=== PATIENT | female | born 1965 | race Caucasian/White ===

== ENCOUNTER 2017-08-14 09:48 | Inpatient (IN) | payer OTHER, MEDICARE ==
[~2017-08-14] VITALS: Ht 157.5 cm; Wt 38.6 kg
--- NOTE | 2017-08-14 10:41 | RADIOLOGY REPORT ---
EXAMINATION: XR CHEST CLINICAL INFORMATION: Rule out pneumonia. COMPARISON: Chest radiograph 02/16/2011 TECHNIQUE: 2 views of the chest were obtained. FINDINGS: Mild right convex thoracic curvature. The lungs are hyperinflated and underlying emphysema suspected. No focal consolidation or pleural effusion. The heart and mediastinum are normal in appearance. IMPRESSION: Hyperinflation. Suspect underlying emphysema. High-resolution CT of the thorax could be obtained as warranted clinically. No evidence of pneumonia.
--- NOTE | 2017-08-14 11:37 | ED DYSPNEA/ASTHMA COMPLAINT ---
History of Present Illness General Chief Complaint: General Adult Stated Complaint: ?PNA PER PT Source: patient Exam Limitations: no limitations Vital Signs & Intake/Output Vital Signs & Intake/Output Vital Signs Date Time Temp Pulse Resp B/P B/P Pulse O2 O2 Flow FiO2 Mean Ox Delivery Rate 08/14 1624 98.9 98 20 104/58 95 Nasal 4.0L Cannula 08/14 1315 98.8 98 24 118/69 89 Room Air 08/14 1208 92 18 99 Aerosol Mask 08/14 1201 94 Room Air 08/14 1130 93 Room Air 08/14 1130 136 30 92 Room Air 08/14 1004 97.0 124 18 96 Room Air Allergies Coded Allergies: morphine (RASH 08/14/17) Reconcile Medications Dicyclomine HCl 20 MG TABLET 1 TAB PO 4 TIMES/DAY ABD CRAMPS (Reported) Levofloxacin 750 MG TABLET 1 TAB PO DAILY ?PNA (Reported) Loperamide HCl (Imodium A-D) 2 MG CAPSULE 1 CAP PO PRN DIARRHEA (Reported) Melatonin 3 MG TABLET 1 TAB PO QPM SLEEP (Reported) Triage Note: PT STATES SHE WAS DX WITH PNA X4 DAYS AGO AT [facility]. WAS PUT ON LEVAQUIN BUT FEELS NO BETTER. REPORTS SHE DID NOT HAVE A CHEST XRAY. APPETITE AND FOOD HAS NO FLAVOR. HAS A HX OF CHRONS. Triage Nurses Notes Reviewed? yes Onset: Abrupt Duration: week(s):, constant Timing: recent history Severity: moderate, severe HPI: 52-year-old female comes into the emergency room feeling sick over the past week. She reports that she's had fever chills cough shortness of breath and some pleuritic chest pain. She was seen at urgent care center prescribed Levaquin. She smokes a half a pack a day for approximately 35-40 years. Denies any prior diagnosis of COPD. Denies any syncopal episodes. Nothing seems to make this better. She comes in for further evaluation. (Brendan NIETO,Tomi) Past History Travel History Traveled to [place] past 21 day No Medical History Any Pertinent Medical History? see below for history Gastrointestinal: Crohn's disease Surgical History Surgical History: non-contributory Psychosocial History Who do you live with Family Services at Home Nursing What is your primary language Nicaraguan Tobacco Use: Current Daily Use Daily Tobacco Use Amount/Type: => 5 Cigarettes daily Family History Hx Contributory? No (Tomi Pinedo) Review of Systems Review of Systems Constitutional: Reports: see HPI. EENTM: Reports: see HPI. Respiratory: Reports: see HPI. Cardiovascular: Reports: no symptoms. GI: Reports: no symptoms. Genitourinary: Reports: no symptoms. Musculoskeletal: Reports: no symptoms. Skin: Reports: no symptoms. Neurological/Psychological: Reports: no symptoms. Hematologic/Endocrine: Reports: no symptoms. Immunologic/Allergic: Reports: no symptoms. All Other Systems: Reviewed and Negative (Tomi Pinedo) Physical Exam Physical Exam General Appearance: alert, mild distress, thin Head: atraumatic Eyes: Bilateral: normal appearance. Ears, Nose, Throat: normal ENT inspection, hearing grossly normal Neck: normal inspection Respiratory: decreased breath sounds, rhonchi, wheezing Cardiovascular: regular rate/rhythm, tachycardia Extremities: normal inspection Neurologic/Psych: awake, alert, oriented x 3, normal gait, normal mood/affect Skin: intact, normal color Core Measures ACS in differential dx? No CVA/TIA Diagnosis No Sepsis Present: No Sepsis Focused Exam Completed? No (Tomi Pinedo) Progress Differential Diagnosis: asthma, AMI, bronchitis, costochondritis, CHF, COPD, musculoskeletal pain, pericarditis, pulmonary embolism, pneumonia, pneumothorax, rib fracture, unstable angina Plan of Care: Orders Procedure Date/time Status Regular Diet 08/14 D Active BLOOD CULTURE 08/14 1603 Active URINALYSIS 08/14 1401 Active Add-on Test (ER Only) 08/14 1306 Active D-DIMER 08/14 1200 Complete TROPONIN LEVEL 08/14 1137 Complete COMPREHENSIVE METABOLIC PANEL 08/14 1137 Complete CBC WITHOUT DIFFERENTIAL 08/14 1137 Complete EKG 08/14 1129 Active RAPID VIRAL INFLUENZA A 08/14 1006 Complete Current Medications Sig/Stefanie Start time Last Medication Dose Stop Time Status Admin Azithromycin 500 MG ONCE ONE 08/14 1630 AC (Zithromax) 08/14 1729 Dextrose/Water 250 ML (D5W) Laboratory Tests 08/14/17 1200: Anion Gap 19 H, Estimated GFR 34 L, BUN/Creatinine Ratio 31.3 H, Glucose 110 H, Calcium 10.5 H, Total Bilirubin 0.9, AST 38 H, ALT 40, Alkaline Phosphatase 127 H, Troponin I < 0.01, Total Protein 8.4 H, Albumin 4.9, Globulin 3.5, Albumin/Globulin Ratio 1.4, D-Dimer High Sensitivty 217, CBC w Diff NO MAN DIFF REQ, RBC 5.29, MCV 94.2, MCH 31.2 H, MCHC 33.1, RDW 12.7, MPV 8.2, Gran % 70.9, Lymphocytes % 17.2 L, Monocytes % 10.0 H, Eosinophils % 1.4, Basophils % 0.5, Absolute Granulocytes 8.8 H, Absolute Lymphocytes 2.1, Absolute Monocytes 1.3 H, Absolute Eosinophils 0.2, Absolute Basophils 0.1 Microbiology 08/14 1642 BLOOD: Blood Culture - RECD 08/14 1620 BLOOD: Blood Culture - RECD 08/14 1009 NASOPHARYN: Influenza Virus A & B Rapid Smear - COMP Diagnostic Imaging: Viewed by Me: Radiology Read, CT Scan. Discussed w/RAD: Radiology Read, CT Scan. Radiology Impression: PATIENT: JOSÉ MIGUEL BAUMAN PRESENT AGE: 52 PATIENT ACCOUNT NO: [id number] : 66 LOCATION: [facility] ORDERING PHYSICIAN: Anabell Goldman MD SERVICE DATE: 08/14/17-1006 EXAM TYPE: RAD - XRY -CHEST XRAY, TWO VIEWS EXAMINATION: XR CHEST CLINICAL INFORMATION: Rule out pneumonia. COMPARISON: Chest radiograph 02/16/2011 TECHNIQUE: 2 views of the chest were obtained. FINDINGS: Mild right convex thoracic curvature. The lungs are hyperinflated and underlying emphysema suspected. No focal consolidation or pleural effusion. The heart and mediastinum are normal in appearance. IMPRESSION : Hyperinflation. Suspect underlying emphysema. High-resolution CT of the thorax could be obtained as warranted clinically. No evidence of pneumonia. DICTATED BY : Kash Lutz MD DATE/TIME DICTATED:08/14/171031 PROVIDER NETWORK ANALYST:MISSY DATE/TIME TRANSCRIBED:08/14/171031 CONFIDENTIAL, DO NOT COPY WITHOUT APPROPRIATE AUTHORIZATION. <Electronically signed in Other Vendor System> SIGNED BY: Kash Lutz MD 08/14/17 1041 Initial ED EKG: normal sinus rhythm, rate (105), nonspecific ST T wave chg (Tomi Pinedo) Departure Departure Disposition: STILL A PATIENT Condition: Stable Clinical Impression Primary Impression: Pneumonia Secondary Impressions: Hypoxia Referrals: Yulisa Salmeron APRN (PCP/Family) Departure Forms: Customer Survey General Discharge Information Admission Note Spoke With: Alonso Orozco MD Documentation of Exam: Documentation of any treatments & extenuating circumstances including Concerns Regarding Discharge (functional status, medication knowledge or non-compliance, living conditions, etc.) that warrant an admission rather than observation: Patient will require IV antibiotics. Supplemental oxygen. Breathing treatments. Pulmonary consult. Patient's oxygen saturation dropped to 88% and she feels very short of breath and tachypnea on exam. (Tomi Pinedo) PA/RING MAKING MACHINE OPERATOR Co-Sign Statement Statement: ED Attending supervision documentation- [X] I saw and evaluated the patient. I have also reviewed all the pertinent lab results and diagnostic results. I agree with the findings and the plan of care as documented in the PA's/RING MAKING MACHINE OPERATOR's documentation. [X] I have reviewed the ED Record and agree with the PA's/RING MAKING MACHINE OPERATOR's documentation. [] Additions or exceptions (if any) to the PAs/RING MAKING MACHINE OPERATOR's note and plan are summarized below: [] (Jones NAQVI,Anabell) Critical Care Note Critical Care Note Critical Care Time: non-applicable (Tomi Pinedo)
[2017-08-14] MEDS ORDERED: LEVOFLOXACIN750 M1 PO (12:15)
[2017-08-14] MEDS ORDERED: DICYCLOMINE HCL20 M1 PO (12:17)
[2017-08-14] MEDS ORDERED: IMODIUM A-D2 M2 PO (12:17)
[2017-08-14] MEDS ORDERED: MELATONIN3 M4 PO (12:18)
[2017-08-14 12:20] LABS: ABSOLUTE BASOPHIL COUNT 0.1 /CUMM (0.0-0.2); ABSOLUTE EOSINOPHIL COUNT 0.2 /CUMM (0.0-0.7); ABSOLUTE GRANULOCYTE CT 8.8 /CUMM (1.4-6.5); ABSOLUTE LYMPH COUNT 2.1 /CUMM (1.2-3.4); ABSOLUTE MONOCYTE COUNT 1.3 /CUMM (0.10-0.60); BASOPHIL % 0.5 % (0.0-2.0); EOSINOPHIL % 1.4 % (0-5); GRANULOCYTE % 70.9 % (42.2-75.2); HEMATOCRIT 49.9 % (37-47); MEAN CORPUSCULAR HGB 31.2 PG (27.0-31.0); MEAN CORPUSCULAR HGB CONC 33.1 G/DL (33.0-37.0); MEAN CORPUSCULAR VOLUME 94.2 FL (81.0-99.0); MEAN PLATELET VOLUME 8.2 FL (7.4-10.4); PLATELET COUNT 328 /CUMM (130-400); RBC DISTRIBUTION WIDTH 12.7 % (11.5-14.5); RED BLOOD CELL CT 5.29 /CUMM (4.20-5.40); WHITE BLOOD CELL COUNT 12.4 /CUMM (4.8-10.8)
--- NOTE | 2017-08-14 15:40 | CT SCAN REPORT ---
EXAMINATION: CT CHEST WITHOUT CONTRAST CLINICAL INFORMATION: Shortness of breath and chest pain. COMPARISON: Chest radiograph 08/14/2017, selected images CT neck 02/25/2017. TECHNIQUE: Multidetector volumetric CT imaging of the chest was done. Axial MIP volume rendering provided. Sagittal and coronal reformatted images were obtained. DLP: 199.80 mGy-cm FINDINGS: VB DEVELOPER: Hyperinflation is noted. There is a right convex curvature of the thoracic spine. Airways: The trachea is normal in appearance. Moderate diffuse peribronchial thickening is seen. Endobronchial mucous/secretions is seen scattered in the airways in the right upper lobe and both lower lobes. LUNGS: No significant emphysema. Suspect very early centrilobular emphysema at the lung apices. There are multiple predominantly subsegmental areas of groundglass opacities scattered in the upper lobes and lower lobes and lingula with only minimal involvement of the right middle lobe. Some associated interstitial changes within the groundglass opacities ("crazy paving"). No large confluent areas of consolidation. No evidence of focal mass. MEDIASTINUM: No significant mediastinal adenopathy. PLEURA: There is no pleural effusion. No pleural mass or thickening. AXILLA: No lymphadenopathy. UPPER ABDOMEN: Unremarkable. OSSEOUS STRUCTURES: Right convex thoracic scoliosis. No lytic or sclerotic lesions are seen. IMPRESSION: 1. Multiple predominantly subsegmental areas of groundglass opacity throughout the bilateral lungs. This is associated with moderate peribronchial thickening and mucous/secretions within the peripheral airways as outlined above. 2. Combination of findings could relate to an infectious process and is nonspecific including flu, viral, atypical and bacterial infectious processes. There is a wide differential for these findings including noninfectious entities. Recommend follow-up CT chest posttreatment when the patient is clinically well to reevaluate for any chronic/residual changes. The findings were reviewed with Tomi Cardona.
--- NOTE | 2017-08-14 20:50 | History & Physical ---
Hernando NAQVI,[facility] 08/14/172048: General Information and HPI MD Statement: I have seen and personally examined JOSÉ MIGUEL BAUMAN and documented this H&P. The patient is a 52 year old F who presented with a patient stated chief complaint of [sob, fatigue,cough]. Source of Information: patient History of Present Illness: 52 yo F with pmhx of chrohns dz s/p multiple bowel resecutions, polysubstance abuse, presenting for worsening symptoms of sob, cough, fatigue. The patient states that her symptoms started last tuesday when she felt extremely weak. She also endorses dry cough, decrease appetite, [place], mild abd pain, sob, feelings of chest compression and increase in her stool. She states her symptoms have been progressively worst. She started having a fever on tuesday. She then decided to go to an urgent care clinic on where she was perscribed levoquin for suspected pna. She took it for 2 days and went to the ED today because of her husbands concerns of not improving. She also endorses episodes where she wakes up from dyspnic/sob episodes/ orthopnea at night. She states it happens intermittently. She usually sleeps with 1 pillow but during these episodes she will use 2-3 pillows. She denies any LE edema. She also endorses losing weight the for the past several months. She also endorses smoking .5 ppd x 26 years. She denies any purse breathing. She states did not get the flu and pna shot. Allergies/Medications Allergies: Coded Allergies: morphine (RASH 08/14/17) Home Med list Dicyclomine HCl 20 MG TABLET 1 TAB PO 4 TIMES/DAY ABD CRAMPS (Reported) Levofloxacin 750 MG TABLET 1 TAB PO DAILY ?PNA (Reported) Loperamide HCl (Imodium A-D) 2 MG CAPSULE 1 CAP PO PRN DIARRHEA (Reported) Melatonin 3 MG TABLET 1 TAB PO QPM SLEEP (Reported) Past History Travel History Traveled to [place] past 21 day No Medical History Gastrointestinal: Crohn's disease Isolation History: Standard Surgical History Surgical History: non-contributory Past Family/Social History Psychosocial History Services at Home: Nursing Review of Systems Review of Systems Constitutional: Reports: see HPI, chills, fever, malaise, weakness. Respiratory: Reports: cough, short of breath. GI: Reports: nausea, changes in stool. Genitourinary: Reports: no symptoms. Exam & Diagnostic Data Last 24 Hrs of Vital Signs/I&O Vital Signs Date Time Temp Pulse Resp B/P B/P Pulse O2 O2 Flow FiO2 Mean Ox Delivery Rate 08/14 2322 98.4 74 20 116/74 96 Nasal 4.0L Cannula 08/147 97 Nasal 4.0L Cannula 08/14 2008 98.2 83 18 106/58 97 Nasal 4.0L Cannula 08/14 1928 98.0 88 18 95/60 96 Nasal 4.0L Cannula 08/14 1624 98.9 98 20 104/58 95 Nasal 4.0L Cannula 08/14 1315 98.8 98 24 118/69 89 Room Air 08/14 1208 92 18 99 Aerosol Mask 08/14 1201 94 Room Air 08/14 1130 93 Room Air 08/14 1130 136 30 92 Room Air 08/14 1004 97.0 124 18 96 Room Air Intake & Output 08/15 0800 08/15 0000 08/14 1600 Intake Total 240 1000 Output Total Balance 240 1000 Intake, IV 1000 Intake, Oral 240 Patient 84 lb 15.99 oz Weight Weight Reported by Patient Measurement Method Physical Exam General Appearance Alert, Oriented X3, Cooperative, Mild Distress, very thin Skin herpetic lesions on L lip and nasal area HEENT no neck lymphadenopathy Cardiovascular Regular Rate, Normal S1, Normal S2 Lungs decrease lung sounds more on L, b/l inspiratory wheezes, bronchial breathing Abdomen Soft, No Tenderness, 2x colostomy bags Extremities no LE edema Last 24 Hrs of Labs/Zander: Laboratory Tests 08/14/17 2344: Lactic Acid Cancelled 08/14/17 2254: Troponin I 0.02 08/14/17 2204: Lactic Acid 2.4 H 08/14/17 1200: Lactic Acid 2.0 08/14/17 1200: Anion Gap 19 H, Estimated GFR 34 L, BUN/Creatinine Ratio 31.3 H, Glucose 110 H, Calcium 10.5 H, Total Bilirubin 0.9, AST 38 H, ALT 40, Alkaline Phosphatase 127 H, Troponin I < 0.01, Total Protein 8.4 H, Albumin 4.9, Globulin 3.5, Albumin/Globulin Ratio 1.4, D-Dimer High Sensitivty 217, CBC w Diff NO MAN DIFF REQ, RBC 5.29, MCV 94.2, MCH 31.2 H, MCHC 33.1, RDW 12.7, MPV 8.2, Gran % 70.9, Lymphocytes % 17.2 L, Monocytes % 10.0 H, Eosinophils % 1.4, Basophils % 0.5, Absolute Granulocytes 8.8 H, Absolute Lymphocytes 2.1, Absolute Monocytes 1.3 H, Absolute Eosinophils 0.2, Absolute Basophils 0.1 Microbiology 08/14 2205 URINE ROUT: Legionella Antigen - ORD 08/14 2205 URINE ROUT: Streptococcus pneumoniae Antigen (M - ORD 08/14 1642 BLOOD: Blood Culture - RECD 08/14 1620 BLOOD: Blood Culture - RECD 08/14 1009 NASOPHARYN: Influenza Virus A & B Rapid Smear - COMP Assessment/Plan Assessment: A: 52 yo F with [facility] s/p multiple bowel resecutions, polysubstance abuse, presenting for worsening symptoms of sob, cough, and fatigue without improvement on outpatient levoquin. #Pneumonia with imposed on COPD exascerbation/bronchitis Ct revealed multiple GGO in bilateral lungs. and is nonspecific including flu, viral, atypical and bacterial infectious processes and noninfectious entities. Pt afebrile Wbc 12.4 Anion gap 19 Flu negative LA 2.0 -> 2.4 -> 1.8 -Follow-up [facility] -Follow-up urinary strep pneumo and Legionella -Continue ceftriaxone and azithromycin -Pulmonary consult #hx of chrohns -Outpatient GI follow-up with her specialist Dr. Kimbrough #amado BUN 50, Creatinine 1.6 -Continue IV fluids, continue to monitor #increased rbc from chronic hypoxia vs hemoconcentration H/H 16.5, 49.9 Most likely this is due to hypoxia from COPD as other labs do not show evidence of hemoconcentration -Continue to monitor -Pulmonary consult #hyponatremia Sodium 133, 136 baseline Most likely due to poor appetite -Continue IV fluids #hypercalcemia -Continue IV fluids #transaminitis Ast 38, ALT 40, ALP 127 -Repeat labs in a.m. possibly due to error #hx of smoking -cont nicotine patch + smoking cessation #insomnia -Continue melatonin #dvt prophylaxis -heparin sub q #FULL CODE As Ranked By This Provider Problem List: 1. Pneumonia 2. Bronchitis 3. Crohn disease 4. Hyponatremia 5. Hypercalcemia 6. AMADO (acute kidney injury) Core Measures/Misc (03/20) Acute Coronary Syndrome ACS Diagnosis: No Congestive Heart Failure Congestive Heart Failure Diagnosis No Cerebrovascular Accident CVA/TIA Diagnosis: No VTE (View Protocol) VTE Risk Factors Acute Medical Illness No Mechanical VTE Prophylaxis d/t Other No VTE Pharm Prophylaxis d/t NA PharmProphylax ordered Sepsis (View protocol) Sepsis Present: No Alonso Orozco MD 08/15/17 0014: Attending MD Review Statement Attending Statement Attending MD Statement: examined this patient, discuss w/resident/PA/KICK PRESS OPERATOR, agreed w/resident/PA/KICK PRESS OPERATOR, reviewed EMR data (avail), reviewed images, amended to note Attending Assessment/Plan: The patient is a 52 yo female with h/o multiple bowel resections (Crohn's Disease), h/o polysubstance abuse (in past), and smoking h/o who presented in the ED with c/o progressive dyspnea, malaise, cough, and some pleuritic chest pain over the last week. She was seen at an urgent care center and started on Levaquin. She denied any fever or chills. She is a patient at [facility] and states she was to have more workup of her lungs, however had difficulty scheduling scans. She has also had slow weight loss in recent months. Physical Exam: VS: T 97.0, P 124-98, R 30-20, BP 118/69, PO 96% RA HEENT: eyes- PERRLA, EOMI annie- dry mucosa Neck: no adenopathy, JVD, bruits Chest: diminished BS, scattered rhonchi, + mild to mod expiratory wheeze Cor: RRR nl S1, S2 (at time of my exam) Abd: BS+, soft, NT Ext: non-tender, no edema, pulses 2+ Neuro: alert & oriented x 3, non-focal exam, gait not tested Labs/Tests- as above Impression/Plan: #COPD Exacerbation/Bronchitis- no focal infiltrate on CT- ? most likely infectious (viral vs bacterial). No prior admits for lung issues, however with smoking hx suspect COPD. Plan: Admit to medical floor. Agree with IV steroids, aerosol, Zithromax (she received Ceftriaxone x 1 in ED). Consider pulmonary consult in morning as will need OP follow-up. #H/O ?Crohn's Disease- weight loss. Was followed by GI. Plan: OP GI follow-up. #AMADO- Cre 1.6 with normal baseline. Most likely secondary to volume depletion. Plan: Check U/A, IV hydration and follow-up. If not improved may need renal US. #Hyponatremia- most likely due to poor po intake. Plan: Follow-up with NS hydration. #Lactic Acidosis- no clinical sepsis- may be related to volume depletion. Plan: Follow up lactate with hydration. Yesi NAQVI,[facility] 08/15/17 0905: Resident Review Statement Resident Statement: examined this patient, discussed with planning intern, agreed with planning intern Other Findings: Ms. Bauman is 52 year old female with past medical history significant for Crohn' s disease status post multiple bowel resection for Crohn's disease and bilateral colostomy, poly-substance abuse, who presented to ED with chief complaint of shortness of breath and cough. Problem list Acute hypoxic respiratory failure Community-acquired pneumonia COPD exacerbation Lactic acidosis Hyponatremia Dehydration AST and alkaline phosphatase elevation Acute kidney injury Plan Admit to general medical floor Vitals every shift Continue ceftriaxone and azithromycin TRC and nebs Oxygen supplementation Consider pulmonary consultation for pulmonary function test Repeat CBC, BMP and liver function test in a.m. Solu-Medrol 40 twice a day Nicotine patch, smoking cessation counseling Fluid resuscitation Trend lactic acid DVT prophylaxis heparin subcutaneous Patient is on dicyclomine and loperamide as a when necessary symptomatic treatment for Crohn's disease, continue as needed DVT prophylaxis heparin subcutaneous Code full
[2017-08-14 23:22] VITALS: BP 116/74
--- NOTE | 2017-08-15 00:30 | Admission Certification ---
Admission Certification Certification Statement - As attending physician, I certify that at the time of - admission, based on clinical presentation, severity of - symptoms, need for further diagnostic testing and - therapeutic interventions, and risk of adverse outcomes - without in-hospital treatment, in my clinical assessment, - this patient requires an acute hospital stay for a minimum - of two nights or longer. I have also considered psychsocial - factors such as support system, advanced age, financial - issues, cognitive issues, and failed out-patient treatments, - past re-admission history, safety of patient, and lack of - compliance as applicable. Specific rationale supporting this admission is: The patient presents with COPD exacerbation/bronchitis. Also with AMADO/volume depletion and lactic acidosis. Needs aggressive IV hydration, IV steoids, Abx, pulmonary consult, aerosol, close monitoring of pulse ox.
[2017-08-15 06:55] VITALS: BP 96/52
[2017-08-15 08:15] LABS: ABSOLUTE BASOPHIL COUNT 0.1 /CUMM (0.0-0.2); ABSOLUTE EOSINOPHIL COUNT 0.1 /CUMM (0.0-0.7); ABSOLUTE GRANULOCYTE CT 11.5 /CUMM (1.4-6.5); ABSOLUTE LYMPH COUNT 2.7 /CUMM (1.2-3.4); ABSOLUTE MONOCYTE COUNT 1.2 /CUMM (0.10-0.60); BASOPHIL % 0.5 % (0.0-2.0); EOSINOPHIL % 0.4 % (0-5); GRANULOCYTE % 73.9 % (42.2-75.2); MEAN CORPUSCULAR HGB 31.5 PG (27.0-31.0); MEAN CORPUSCULAR HGB CONC 33.3 G/DL (33.0-37.0); MEAN CORPUSCULAR VOLUME 94.4 FL (81.0-99.0); MEAN PLATELET VOLUME 8.5 FL (7.4-10.4); PLATELET COUNT 254 /CUMM (130-400); RBC DISTRIBUTION WIDTH 12.9 % (11.5-14.5); WHITE BLOOD CELL COUNT 15.6 /CUMM (4.8-10.8)
--- NOTE | 2017-08-15 08:16 | PN- Housestaff ---
Zhang NAQVI,Carroll 08/15/17 0816: Subjective Follow-up For: COPD EXACERBATION AMADO Subjective: Seen and examined at [facility]. She appears depressed and tearful during episodes of conversation. She appears in mil Review of Systems Constitutional: Reports: see HPI. Objective Last 24 Hrs of Vital Signs/I&O Vital Signs Date Time Temp Pulse Resp B/P B/P Pulse O2 O2 Flow FiO2 Mean Ox Delivery Rate 08/15 1010 Nasal 2.0L Cannula 08/15 1010 95 Nasal 2.0L Cannula 08/15 0655 98.4 78 20 96/52 99 Nasal 4.0L Cannula 08/14 2322 98.4 74 20 116/74 96 Nasal 4.0L Cannula 08/14 2157 97 Nasal 4.0L Cannula 08/14 2008 98.2 83 18 106/58 97 Nasal 4.0L Cannula 08/14 1928 98.0 88 18 95/60 96 Nasal 4.0L Cannula 08/14 1624 98.9 98 20 104/58 95 Nasal 4.0L Cannula 08/14 1315 98.8 98 24 118/69 89 Room Air 08/14 1208 92 18 99 Aerosol Mask 08/14 1201 94 Room Air Intake & Output 08/15 1600 08/15 0800 08/15 0000 Intake Total 1680 240 Output Total Balance 1680 240 Intake, IV 1200 Intake, Oral 480 240 Patient 38.555 kg Weight Weight Reported by Patient Measurement Method Physical Exam General Appearance: Alert, Oriented X3, appears depressed Other Physical Findings: HEENT no neck lymphadenopathy Cardiovascular Regular Rate, Normal S1, Normal S2 Lungs decrease lung sounds more on L, b/l inspiratory wheezes, bronchial breathing Abdomen Soft, No Tenderness, 2x colostomy bags Extremities no LE edema Assessment/Plan Assessment: Assesment 52 year old female with past medical history significant for Crohn's disease status post multiple bowel resection for Crohn's disease and bilateral colostomy , poly-substance abuse, who presented to ED with chief complaint of shortness of breath and cough refractory to 2 day use of levofloxacin. Impression/Plan: * COPD Exacerbation/Bronchitis- no focality on CXR, most likely infectious ( viral vs bacterial). , however with smoking hx suspect COPD. Most acute bronchitis is viral and self limiting, hence does not require abx, Will d/c ceftriaxone and continue azithromycin specifically for copd which will also has added advantage of covering possible atypicals pathogen (CXR finding could be suggestive of atypical pneumonia vs viral). Ideally, procalcitonin levels would be helpful in deterimining bacterial etiology. * AMADO- Resolved s/p IVF hydration. * Hyponatremia-Most likely 2/2 hypovolemia, stable and resolving. Will continue to trend * Lactic Acidosis- resolved after IVFs. * History of Chrons. Stable with no flare ups. Problem List: 1. AMADO (acute kidney injury) 2. Bronchitis Pain Ratin Pain Location: NONE Pain Goal: Remain pain free Pain Plan: PER PATHWAY Tomorrow's Labs & Rationales: BEP_AKI Erlin NAQVI,Barbara 08/15/17 1209: Attending MD Review Statement Attending Statement Attending MD Statement: examined this patient, discuss w/resident/PA/HOUSE WIRER HELPER, agreed w/resident/PA/HOUSE WIRER HELPER, reviewed EMR data (avail), discussed with nursing, discussed with case mgmt, reviewed images, amended to note Attending Assessment/Plan: Patient seen and examined, feeling very short of breath. Said having significant amount of coughing. Patient remains afebrile but white blood cell count has increased. Looking back patient does have chronic leukocytosis. But this could also be secondary to steroids. Vital Signs Date Time Temp Pulse Resp B/P B/P Pulse O2 O2 Flow FiO2 Mean Ox Delivery Rate 08/15 1010 Nasal 2.0L Cannula 08/15 1010 95 Nasal 2.0L Cannula 08/15 0655 98.4 78 20 96/52 99 Nasal 4.0L Cannula 08/14 2322 98.4 74 20 116/74 96 Nasal 4.0L Cannula 08/14 2157 97 Nasal 4.0L Cannula 08/14 2008 98.2 83 18 106/58 97 Nasal 4.0L Cannula 08/14 1928 98.0 88 18 95/60 96 Nasal 4.0L Cannula 08/14 1624 98.9 98 20 104/58 95 Nasal 4.0L Cannula 08/14 1315 98.8 98 24 118/69 89 Room Air on exam; aox3, nad. cv; s1,s2, rrr resp; b/l exp wheeze but overall decreased bs. abd; soft, nt, bs+ ext; no edema. Laboratory Tests 08/15 08/15 0734 0330 Chemistry Sodium (137 - 145 mmol/L) 134 L Potassium (3.5 - 5.1 mmol/L) 3.9 Chloride (98 - 107 mmol/L) 102 Carbon Dioxide (22 - 30 mmol/L) 23 Anion Gap (5 - 16) 10 BUN (7 - 17 mg/dL) 27 H Creatinine (0.5 - 1.0 mg/dL) 0.8 Estimated GFR (>60 ml/min) > 60 BUN/Creatinine Ratio (7 - 25 %) 33.8 H Calcium (8.4 - 10.2 mg/dL) 8.6 Total Bilirubin (0.2 - 1.3 mg/dL) 0.5 Direct Bilirubin (< 0.4 mg/dL) 0.2 AST (14 - 36 U/L) 21 ALT (9 - 52 U/L) 31 Alkaline Phosphatase (<127 U/L) 72 Troponin I (< 0.11 ng/ml) < 0.01 Total Protein (6.3 - 8.2 g/dL) 5.5 L Albumin (3.5 - 5.0 g/dL) 3.0 L Hematology CBC w Diff NO MAN DIFF REQ WBC (4.8 - 10.8 /CUMM) 15.6 H RBC (4.20 - 5.40 /CUMM) 3.74 L Hgb (12.0 - 16.0 G/DL) 11.8 L Hct (37 - 47 %) 35.3 L MCV (81.0 - 99.0 FL) 94.4 MCH (27.0 - 31.0 PG) 31.5 H MCHC (33.0 - 37.0 G/DL) 33.3 RDW (11.5 - 14.5 %) 12.9 Plt Count (130 - 400 /CUMM) 254 MPV (7.4 - 10.4 FL) 8.5 Gran % (42.2 - 75.2 %) 73.9 Lymphocytes % (20.5 - 51.1 %) 17.2 L Monocytes % (1.7 - 9.3 %) 8.0 Eosinophils % (0 - 5 %) 0.4 Basophils % (0.0 - 2.0 %) 0.5 Absolute Granulocytes (1.4 - 6.5 /CUMM) 11.5 H Absolute Lymphocytes (1.2 - 3.4 /CUMM) 2.7 Absolute Monocytes (0.10 - 0.60 /CUMM) 1.2 H Absolute Eosinophils (0.0 - 0.7 /CUMM) 0.1 Absolute Basophils (0.0 - 0.2 /CUMM) 0.1 Toxicology Urine Opiates Screen (>2000 NG/ML) 829.00 Methadone Screen (>300 NG/ML) 108 Barbiturate Screen (>200 NG/ML) < 60 Ur Phencyclidine Scrn (>25 NG/ML) 14.90 Amphetamines Screen (>1000 NG/ML) < 100 U Benzodiazepines Scrn (>200 NG/ML) < 85 Urine Cocaine Screen (>300 NG/ML) < 50 Urine Cannabis Screen (>50 NG/ML) < 5.00 Urines Urinalysis LIGHT H Urine Color (YEL,AMB,STR) YEL Urine Clarity (CLEAR) HAZY H Urine pH (5.0 - 8.0) 6.0 Ur Specific Jonancy (1.001 - 1.035) >= 1.030 Urine Protein (NEG,<30 MG/DL) NEG Urine Ketones (NEG) NEG Urine Nitrite (NEG) NEG Urine Bilirubin (NEG) NEG Urine Urobilinogen (0.1 - 1.0 EU/dl) 0.2 Ur Leukocyte Esterase (NEG) NEG Ur Microscopic SEDIMENT EXAMINED Urine RBC (0 - 5 /HPF) 5-10 H Urine WBC (0 - 2 /HPF) 3-5 H Ur Epithelial Cells (NONE,FEW) MOD H Hyaline Casts (0/LPF) FEW H Urine Mucus (FEW,NONE) MOD H Urine Hemoglobin (NEG) TRACE-INTACT Urine Glucose (N MG/DL) NEG 08/15 08/14 08/14 08/14 0305 2344 2254 2204 Chemistry Lactic Acid (0.7 - 2.1 mmol/L) 1.8 Cancelled 2.4 H Troponin I (< 0.11 ng/ml) 0.02 A/P; 52 yo female with h/o multiple bowel resections (Crohn's Disease), history of rectovaginal fistula, history of anxiety and depression h/o polysubstance abuse admitted with shortness of breath, dyspnea, acute COPD exacerbation and bronchitis. Patient currently getting treated with IV steroids and IV azithromycin. We'll continue that and follow-up on the cultures. D-dimer is negative. Continue TRC nebs. Will consider putting consult if she does not improve. We'll follow-up on all the cultures. DVT px; hep sq.
[2017-08-15 09:03] LABS: HEMATOCRIT 35.3 % (37-47); RED BLOOD CELL CT 3.74 /CUMM (4.20-5.40)
[2017-08-15 13:47] VITALS: BP 118/64
--- NOTE | 2017-08-15 19:15 | Event Note ---
Event Note Event Note: The nursing staff told me that patient's blood culture is positive with gram- positive cocci in one bottle. We will wait for the final blood culture report and rule out if it's not contamination. Positive GPC BC in 1 of 4 bottles. Patient with no fevers, leukocytosis likely from flu like illness vs steroid use. On Azithromycin. This likely represents contamination. Will treat if the patient become febrile. Primary team made aware. Daniele Smith 100
[2017-08-15 22:57] VITALS: BP 100/52
--- NOTE | 2017-08-16 07:14 | PN- Housestaff ---
Zhang NAQVI,Carroll 08/16/17712: Subjective Follow-up For: COPD EXACERBATION AMADO Subjective: Seen and examined at bedside. Patient appears more upbeat and engaging compared to previous date. She denies any increased shortness of breath, chest pain, palpitation, cough, fever, chills, nausea, vomiting, abdominal pain or dysuria. She is eager for discharge. Review of Systems Constitutional: Reports: see HPI. Objective Last 24 Hrs of Vital Signs/I&O Vital Signs Date Time Temp Pulse Resp B/P B/P Pulse O2 O2 Flow FiO2 Mean Ox Delivery Rate 08/16 1328 98.4 93 20 102/53 94 Room Air 08/16 1127 98.0 91 18 100/53 97 Room Air 08/16 1000 94 Room Air 08/16 0852 98 Nasal 1.0L Cannula 08/16 0800 95 Nasal 1.0L Cannula 08/16 0735 98.3 58 20 92/56 95 Nasal 1.0L Cannula 08/16 0000 Nasal 1.0L Cannula 08/15 2257 98.4 73 18 100/52 95 Nasal 1.0L Cannula 08/15 2045 95 Nasal 1.0L Cannula Intake & Output 08/16 1600 08/16 0800 08/16 0000 Intake Total 400 1380 690 Output Total Balance 400 1380 690 Intake, IV 0 900 450 Intake, Oral 400 480 240 Physical Exam General Appearance: Alert, Oriented X3, Cooperative Lymphatic: Cervical nl Cardiovascular: Regular Rate, Normal S1, Normal S2 Lungs: Normal Air Movement, RHONCHI MILD B/L Current Medications: Current Medications Sig/Stefanie Start time Last Medication Dose Route Stop Time Status Admin Acetaminophen 325 MG Q6P PRN 08/14 2215 AC PO Albuterol Sulfate 3 ML TID 08/15 1600 AC 08/16 INH 1351 Azithromycin 500 MG DAILY 08/16 1000 AC 08/16 PO 1019 Azithromycin 500 MG DAILY 08/15 1000 DC 08/15 Dextrose/Water 250 ML IV 0935 Dicyclomine HCl 20 MG 4 TIMES/DAY PRN 08/16 0300 AC 08/16 PO 0306 Guaifenesin 600 MG Q12 08/15 2100 AC 08/16 PO 1019 Heparin Sodium 5,000 UNIT Q8 08/14 2212 AC (Porcine) SC Ipratropium [place] 2.5 ML TID 08/15 1600 AC 08/16 INH 1351 Melatonin 3 MG AT BEDTIME 08/15 2200 AC 08/15 PO 2042 Methylprednisolone 40 MG Q12 08/15 1000 DC 08/15 IV 2042 Nicotine 7 MG Q24 08/15 1000 AC 08/16 TOP 1019 Prednisone 60 MG DAILY 08/16 1000 AC 08/16 PO 1019 Sodium Chloride 1,000 ML Q13H 08/14 2045 DC 08/15 IV 2225 Last 24 Hrs of Lab/Zander Results Last 24 Hrs of Labs/Mics: Laboratory Tests 08/16/17 0730: Anion Gap 12, Estimated GFR > 60, BUN/Creatinine Ratio 24.3, CBC w Diff NO MAN DIFF REQ, RBC 3.66 L, MCV 94.7, MCH 31.6 H, MCHC 33.3, RDW 12.9, MPV 8.4, Gran % 85.0 H, Lymphocytes % 10.5 L, Monocytes % 4.4, Eosinophils % 0, Basophils % 0.1, Absolute Granulocytes 16.3 H, Absolute Lymphocytes 2.0, Absolute Monocytes 0.9 H, Absolute Eosinophils 0, Absolute Basophils 0 Assessment/Plan Assessment: Assesment 52 year old female with past medical history significant for Crohn's disease status post multiple bowel resection for Crohn's disease and bilateral colostomy , poly-substance abuse, who presented to ED with chief complaint of shortness of breath and cough refractory to 2 day use of levofloxacin. Impression/Plan: Will continue with ABX treatment for bronchitis (day3) an trc/nebs as needed. Patient was able to taper off o2sats and was ambulating with minimal acute resp distress. Will anticipate discharge tomorrow. Pt already on oral prednisone, will initiate prednisone taper on discharge in addition to albuterol MDI. She might benefit from pulmonology outpatient referral. Regarding her 1 positive BC for gram positive in clusters, is most likely representation of contamination rather than infection. Patient does not want iv drugs or phlebotomy draw. Will refrain from phelbotomy draw unless clinical status changes. Problem List: 1. Bronchitis Pain Ratin Pain Location: NONE Pain Goal: Remain pain free Pain Plan: PER PATHWAY Tomorrow's Labs & Rationales: NONE-DISCHARGE Barbara Kern MD 08/16/17 1105: Attending MD Review Statement Attending Statement Attending MD Statement: examined this patient, discuss w/resident/PA/ROLLER INSPECTOR, agreed w/resident/PA/ROLLER INSPECTOR, reviewed EMR data (avail), discussed with nursing, discussed with case mgmt, reviewed images, amended to note Attending Assessment/Plan: Patient seen and examined, feeling better than before but still not back to baseline. Oxygen has been tapered down. Patient still coughing significantly. Vital Signs Date Time Temp Pulse Resp B/P B/P Pulse O2 O2 Flow FiO2 Mean Ox Delivery Rate 08/16 0852 98 Nasal 1.0L Cannula 08/16 0800 95 Nasal 1.0L Cannula 08/16 0735 98.3 58 20 92/56 95 Nasal 1.0L Cannula 08/16 0000 Nasal 1.0L Cannula 08/15 2257 98.4 73 18 100/52 95 Nasal 1.0L Cannula 08/15 2045 95 Nasal 1.0L Cannula 08/15 1347 98.1 97 20 118/64 96 Nasal 1.0L Cannula on exam; aox3, nad. cv; s1,s2, rrr resp; + junky bs b/l abd; soft, nt, bs+ ext; no edema. Laboratory Tests 08/16 0730 Chemistry Sodium (137 - 145 mmol/L) 140 Potassium (3.5 - 5.1 mmol/L) 4.0 Chloride (98 - 107 mmol/L) 104 Carbon Dioxide (22 - 30 mmol/L) 25 Anion Gap (5 - 16) 12 BUN (7 - 17 mg/dL) 17 Creatinine (0.5 - 1.0 mg/dL) 0.7 Estimated GFR (>60 ml/min) > 60 BUN/Creatinine Ratio (7 - 25 %) 24.3 Hematology CBC w Diff NO MAN DIFF REQ WBC (4.8 - 10.8 /CUMM) 19.2 H RBC (4.20 - 5.40 /CUMM) 3.66 L Hgb (12.0 - 16.0 G/DL) 11.6 L Hct (37 - 47 %) 34.7 L MCV (81.0 - 99.0 FL) 94.7 MCH (27.0 - 31.0 PG) 31.6 H MCHC (33.0 - 37.0 G/DL) 33.3 RDW (11.5 - 14.5 %) 12.9 Plt Count (130 - 400 /CUMM) 288 MPV (7.4 - 10.4 FL) 8.4 Gran % (42.2 - 75.2 %) 85.0 H Lymphocytes % (20.5 - 51.1 %) 10.5 L Monocytes % (1.7 - 9.3 %) 4.4 Eosinophils % (0 - 5 %) 0 Basophils % (0.0 - 2.0 %) 0.1 Absolute Granulocytes (1.4 - 6.5 /CUMM) 16.3 H Absolute Lymphocytes (1.2 - 3.4 /CUMM) 2.0 Absolute Monocytes (0.10 - 0.60 /CUMM) 0.9 H Absolute Eosinophils (0.0 - 0.7 /CUMM) 0 Absolute Basophils (0.0 - 0.2 /CUMM) 0 A/P; 52 yo female with h/o multiple bowel resections (Crohn's Disease), history of rectovaginal fistula, history of anxiety and depression h/o polysubstance abuse admitted with shortness of breath, dyspnea, acute COPD exacerbation and bronchitis. Patient slowly improving. Still having significant amount of cough and on lung exam lungs still sound pretty junky. Patient wants to go home today. We'll try to taper her oxygen and check her ambulatory O2 sat. If she drops and she would stay at least another 24 hours. We have switched her to oral steroids and oral antibiotics. She does have worsening of leukocytosis today but this could be secondary to steroids. She has a positive blood culture in 1 set which is likely a contaminant and it was quite negative staph. Continue TRC nebs. Patient on heparin subcutaneous for DVT prophylaxis.
[2017-08-16 07:35] VITALS: BP 92/56
[2017-08-16 08:34] LABS: ABSOLUTE BASOPHIL COUNT 0 /CUMM (0.0-0.2); ABSOLUTE EOSINOPHIL COUNT 0 /CUMM (0.0-0.7); ABSOLUTE GRANULOCYTE CT 16.3 /CUMM (1.4-6.5); ABSOLUTE MONOCYTE COUNT 0.9 /CUMM (0.10-0.60); BASOPHIL % 0.1 % (0.0-2.0); EOSINOPHIL % 0 % (0-5); HEMATOCRIT 34.7 % (37-47); MEAN CORPUSCULAR HGB 31.6 PG (27.0-31.0); MEAN CORPUSCULAR HGB CONC 33.3 G/DL (33.0-37.0); MEAN CORPUSCULAR VOLUME 94.7 FL (81.0-99.0); MEAN PLATELET VOLUME 8.4 FL (7.4-10.4); PLATELET COUNT 288 /CUMM (130-400); RBC DISTRIBUTION WIDTH 12.9 % (11.5-14.5); RED BLOOD CELL CT 3.66 /CUMM (4.20-5.40); WHITE BLOOD CELL COUNT 19.2 /CUMM (4.8-10.8)
[2017-08-16 11:27] VITALS: BP 100/53
[2017-08-16 13:28] VITALS: BP 102/53
--- NOTE | 2017-08-16 19:34 | Discharge Summary ---
Hospital Course Allergies: Coded Allergies: morphine (RASH 08/14/17)
[2017-08-16] MEDS ORDERED: AZITHROMYCIN500 M3 PO (20:43)
[2017-08-16] MEDS ORDERED: PREDNISONE10 M2 PO (20:43)
[2017-08-16] MEDS ORDERED: GUAIFENESIN ER600 MG PO (21:01)
--- NOTE | 2017-08-16 21:04 | Patient Discharge Instructions ---
Discharge Instructions General Discharge Information You were seen/treated for: BRONCHITIS Special Instructions: PLEASE FOLLOW UP WITH YOUR PCP WITHIN 1 WEEK PLEASE COMPLETE YOUR PREDNISONE SCHEDULE Acute Coronary Syndrome Inclusion Criteria At DC or during hospital stay patient has or had the following: ACS DIAGNOSIS No Discharge Core Measures Meds if any: Prescribed or Continued at Discharge Meds if any: NOT Prescribed or Continued at Discharge Congestive Heart Failure Inclusion Criteria At DC or during hospital stay patient has or had the following: CHF DIAGNOSIS No Discharge Core Measures Meds if any: Prescribed or Continued at Discharge Meds if any: NOT Prescribed or Continued at Discharge Cerebrovascular accident Inclusion Criteria At DC or during hospital stay patient has or had the following: CVA/TIA Diagnosis No Discharge Core Measures Meds if any: Prescribed or Continued at Discharge Meds if any: NOT Prescribed or Continued at Discharge Venous thromboembolism Inclusion Criteria VTE Diagnosis No VTE Type NONE VTE Confirmed by (Test) NONE Discharge Core Measures - Per Current guidelines, there needs to be overlap - treatment for the first 5 days of Warfarin therapy. - If discharged on Warfarin prior to 5 days of - overlap therapy, the patient will need to be - assessed for post discharge needs including - *Post discharge parental anticoagulation - *Warfarin and/or parental anticoagulation education - *Follow up date to check INR post discharge At least 5 days overlap therapy as Inpatient No Meds if any: Prescribed or Continued at Discharge Note: Overlap Therapy is Warfarin and Anticoagulant Meds if any: NOT Prescribed or Continued at Discharge
[2017-08-16] MEDS ORDERED: PROAIR HFA8.5 GM INH (21:16)
[2017-08-16 22:01] VITALS: BP 100/50
[2017-08-17 06:34] VITALS: BP 118/54
--- NOTE | 2017-08-17 07:54 | PN- Housestaff ---
Yadira,[facility] 08/17/17 0753: Subjective Follow-up For: -COPD/BRONCHITIS -AMADO resolved Complaints: no complaints Subjective: Patient seen and examined, she is sitting on the bed with no acute distress, receiving her nebulizer treatment, respiratory therapiest at bedside. She report her breathing little improved. She is still coughing. Currently on room air with no events overnight. Review of Systems Constitutional: Reports: no symptoms. EENTM: Reports: no symptoms. Cardiovascular: Reports: no symptoms. Respiratory: Reports: short of breath, wheezing. Gastrointestinal: Reports: no symptoms. Genitourinary: Reports: no symptoms. Musculoskeletal: Reports: no symptoms. Skin: Reports: no symptoms. Neurological/Psychological: Reports: no symptoms. Hematologic/Endocrine: Reports: no symptoms. Objective Last 24 Hrs of Vital Signs/I&O Vital Signs Date Time Temp Pulse Resp B/P B/P Pulse O2 O2 Flow FiO2 Mean Ox Delivery Rate 08/17 0855 93 Room Air 08/17 0634 97.9 83 18 118/54 96 08/17 0000 Room Air 08/16 2201 98.5 93 19 100/50 95 Room Air 08/16 2015 94 Room Air 08/16 1328 98.4 93 20 102/53 94 Room Air 08/16 1127 98.0 91 18 100/53 97 Room Air 08/16 1000 94 Room Air Intake & Output 08/17 1600 08/17 0800 08/17 0000 Intake Total 240 510 Output Total 600 Balance 240 -90 Intake, IV 10 Intake, Oral 240 500 Number 0 Bowel Movements Output, Urine 600 Physical Exam General Appearance: Alert, Oriented X3, Cooperative, No Acute Distress Skin: No Rashes, No Breakdown, No Significant Lesion Skin Temp/Moisture Exam: Warm/Dry HEENT: Atraumatic, PERRLA, EOMI Neck: Supple, No JVD, No thryomegaly Lymphatic: Axillary nl, Cervical nl Cardiovascular: Regular Rate, Normal S1, Normal S2, No Murmurs Lungs: decrease air movement with expiratory wheezing Abdomen: Normal Bowel Sounds, Soft, No Tenderness Neurological: Strength at 5/5 X4 Ext, Normal Tone, Sensation Intact Extremities: No Edema, Normal Pulses Vascular: Normal Pulses, Pulses Symmetrical Current Medications: Current Medications Sig/Stefanie Start time Last Medication Dose Route Stop Time Status Admin Acetaminophen 325 MG Q6P PRN 08/14 2214 AC 08/17 PO 0333 Albuterol Sulfate 3 ML TID 08/15 1600 AC 08/17 INH 0851 Azithromycin 500 MG DAILY 08/16 1000 AC 08/16 PO 1019 Dicyclomine HCl 20 MG ONCE ONE 08/17 0500 DC 08/17 PO 08/17 0501 0458 Dicyclomine HCl 20 MG 4 TIMES/DAY PRN 08/16 0300 AC 08/17 PO 0233 Guaifenesin 600 MG Q12 08/15 2100 AC 08/16 PO 2101 Heparin Sodium 5,000 UNIT Q8 08/14 2212 AC (Porcine) SC Ipratropium [place] 2.5 ML TID 08/15 1600 AC 08/17 INH 0851 Melatonin 3 MG AT BEDTIME 08/15 2200 AC 08/16 PO 2101 Nicotine 7 MG Q24 08/15 1000 AC 08/16 TOP 1019 Prednisone 60 MG DAILY 08/16 1000 AC 08/16 PO 1019 Last 24 Hrs of Lab/Zander Results Last 24 Hrs of Labs/Mics: Laboratory Tests 08/17/17 0714: CBC w Diff NO MAN DIFF REQ, RBC 3.36 L, MCV 95.3, MCH 32.0 H, MCHC 33.6, RDW 13.0, MPV 7.9, Gran % 71.0, Lymphocytes % 21.6, Monocytes % 6.8, Eosinophils % 0.3, Basophils % 0.3, Absolute Granulocytes 11.1 H, Absolute Lymphocytes 3.4, Absolute Monocytes 1.1 H, Absolute Eosinophils 0, Absolute Basophils 0 Assessment/Plan Assessment: Assesment 52 year old female with past medical history significant for Crohn's disease status post multiple bowel resection for Crohn's disease and bilateral colostomy , poly-substance abuse, who presented to ED with chief complaint of shortness of breath and cough refractory to 2 day use of levofloxacin. Admitted for new onset COPD exacerbation/bronchitis Plan: -COPD exacerbation/bronchitis: * Will continue PO zithromax upon discharge * STR/nebs * Steroid taper * She is stable for discharge today -AMADO resolved -Hx. of Crhons disease: She has some gastric upset symptoms, and she is noted to have loose stool from the ileostomy bag which she mentioned that's not new, will send C.diff, and will start famotidine for acid reflux Full code Problem List: 1. Crohn's disease 2. Bronchitis Pain Ratin Pain Location: abdomen Pain Goal: Remain pain free Pain Plan: Famotidine Tomorrow's Labs & Rationales: - DVT/Prophylaxis: pharmacological Erlin NAQVI,Barbara 08/17/17 1302: Attending MD Review Statement Attending Statement Attending MD Statement: examined this patient, discuss w/resident/PA/UM RN, agreed w/resident/PA/UM RN, reviewed EMR data (avail), discussed with nursing, discussed with case mgmt, reviewed images, amended to note Attending Assessment/Plan: Patient seen and examined, overall feeling better with her breathing. Did complain of some discomfort in the abdomen. She had diarrhea but she always has diarrhea because of her colostomy. She is not requiring any oxygen. Her acute bronchitis has improved. From the respiratory standpoint she is doing much better and medically stable for discharge. We do have to make sure that she has not developed C. difficile. We will send the stool for C. difficile and if it is negative then she can be discharged home on by mouth prednisone taper and by mouth azithromycin to finish the course of antibiotics. Should also continue the inhalers. Patient should follow-up with primary care doctor as well as community living instructor as an outpatient. She needs to have an outpatient PFTs to assess for COPD.
[2017-08-17 08:19] LABS: ABSOLUTE BASOPHIL COUNT 0 /CUMM (0.0-0.2); ABSOLUTE EOSINOPHIL COUNT 0 /CUMM (0.0-0.7); ABSOLUTE GRANULOCYTE CT 11.1 /CUMM (1.4-6.5); ABSOLUTE LYMPH COUNT 3.4 /CUMM (1.2-3.4); ABSOLUTE MONOCYTE COUNT 1.1 /CUMM (0.10-0.60); BASOPHIL % 0.3 % (0.0-2.0); EOSINOPHIL % 0.3 % (0-5); MEAN CORPUSCULAR HGB CONC 33.6 G/DL (33.0-37.0); MEAN CORPUSCULAR VOLUME 95.3 FL (81.0-99.0); MEAN PLATELET VOLUME 7.9 FL (7.4-10.4); PLATELET COUNT 281 /CUMM (130-400); RED BLOOD CELL CT 3.36 /CUMM (4.20-5.40); WHITE BLOOD CELL COUNT 15.7 /CUMM (4.8-10.8)
[2017-08-17 13:53] VITALS: BP 104/60
[2017-08-17] MEDS ORDERED: FAMOTIDINE20 M1 PO (15:17)
--- NOTE | 2017-08-18 21:14 | Discharge Summary ---
Hospital Course Allergies: Coded Allergies: morphine (RASH 08/14/17) Discharge Instructions Medications at Discharge Discharge Medications: Stop taking the following medications: Levofloxacin (Levofloxacin) 750 MG TABLET ORAL DAILY Qty = 10 Continue taking these medications: Dicyclomine HCl (Dicyclomine HCl) 20 MG TABLET 1 Tablet ORAL 4 TIMES A DAY Qty = 60 Comments: Last Taken: 08/17/17 Time: 0915 AM Loperamide HCl (Imodium A-D) 2 MG CAPSULE 1 Capsule ORAL as needed for DIARRHEA Comments: NOT GIVEN IN HOSPITAL Melatonin (Melatonin) 3 MG TABLET 1 Tablet ORAL Every night Comments: Last Taken: 08/16/17 Time: 9 PM Start taking the following new medications: Azithromycin (Azithromycin) 500 MG TABLET 250 Milligram ORAL DAILY Qty = 2 No Refills Comments: Last Taken: 08/17/17 Time: 0915 AM Prednisone (Prednisone) 10 MG TABLET 1 Tablet ORAL SEE INSTRUCTIONS Qty = 30 No Refills Instructions: 50MG X2 DAYS, 40MG X2 DAYS, 30MG FOR 2 DAYS, 20MG FOR 2 DAYS, 10 MG X2 DAYS, THEN STOP Comments: Last Taken: 08/17/17 Time: 0915 AM Guaifenesin (Guaifenesin ER) 600 MG TAB.ER.12H 600 Milligram ORAL EVERY 12 HOURS Qty = 14 No Refills Comments: Last Taken: 08/17/17 Time: 0915 AM Albuterol Sulfate (Proair Hfa) 90 MCG HFA.AER.AD 2 Puff Inhale through mouth EVERY 4-6 HOURS NEEDED as needed for breathing Qty = 1 No Refills Comments: Last Taken: 08/17/17 Time: 1:20 PM Famotidine (Famotidine) 20 MG TABLET 1 Tablet ORAL TWICE DAILY Qty = 60 No Refills Comments: NOT GIVEN IN HOSPITAL
== END 2017-08-17 18:05 | DRG 190 ==
LOC: ERH 09:48 → ERHI 18:59 → 2NB 18:59 → ENRESERV 19:54 → ENTRNSPT 20:35 → EDTRNSPTSTS 21:06 → 2NB 21:18 → CMPTRNSPT 21:35 → 2NB 08-15 08:08
PROVIDERS: Physician Assistant Medical; Student in an Organized Health Care Education/Training Program
DX: J44.1 Chronic obstructive pulmonary disease with (acute) exacerbation (principal); J96.01 Acute respiratory failure with hypoxia; E87.2 Acidosis; E87.1 Hypo-osmolality and hyponatremia; E83.52 Hypercalcemia; K50.90 Crohn's disease, unspecified, without complications; J20.9 Acute bronchitis, unspecified; J44.0 Chronic obstructive pulmonary disease with (acute) lower respiratory infection; G47.00 Insomnia, unspecified; Z93.3 Colostomy status; Z87.891 Personal history of nicotine dependence
CPT/HCPCS: 2NBSP; 36415; 71046; 80307; 81001; 82436; 87040; 87449; 87450; 87804; 87804-59; 93005; 93010; 96361; 96365; 96375; 97110-GO; 97116-GO; 97161-GP; J0456; J0696; J1644; J2920; J2930; J7060

== ENCOUNTER 2018-02-09 09:00 | Inpatient (IN) | payer OTHER, MEDICARE ==
[~2018-02-09] VITALS: Ht 157.5 cm; Wt 51.7 kg
[~2018-02-09 09:00] MED LIST: AZITHROMYCIN500 M3 PO; DICYCLOMINE HCL20 M1 PO; FAMOTIDINE20 M1 PO; GUAIFENESIN ER600 MG PO; IMODIUM A-D2 M2 PO; LEVOFLOXACIN750 M1 PO; MELATONIN3 M4 PO; PREDNISONE10 M2 PO; PROAIR HFA8.5 GM INH
[2018-02-10 09:53] LABS: ABSOLUTE BASOPHIL COUNT 0 /CUMM (0.0-0.2); ABSOLUTE EOSINOPHIL COUNT 0.2 /CUMM (0.0-0.7); ABSOLUTE GRANULOCYTE CT 6.8 /CUMM (1.4-6.5); ABSOLUTE LYMPH COUNT 2.2 /CUMM (1.2-3.4); ABSOLUTE MONOCYTE COUNT 0.6 /CUMM (0.10-0.60); BASOPHIL % 0.3 % (0.0-2.0); EOSINOPHIL % 1.6 % (0-5); GRANULOCYTE % 69.4 % (42.2-75.2); HEMATOCRIT 40.9 % (37-47); MEAN CORPUSCULAR HGB 31.8 PG (27.0-31.0); MEAN CORPUSCULAR HGB CONC 33.7 G/DL (33.0-37.0); MEAN CORPUSCULAR VOLUME 94.4 FL (81.0-99.0); MEAN PLATELET VOLUME 7.9 FL (7.4-10.4); PLATELET COUNT 265 /CUMM (130-400); RBC DISTRIBUTION WIDTH 14.1 % (11.5-14.5); RED BLOOD CELL CT 4.34 /CUMM (4.20-5.40); WHITE BLOOD CELL COUNT 9.8 /CUMM (4.8-10.8)
--- NOTE | 2018-02-10 16:16 | Patient Discharge Instructions ---
Discharge Instructions General Discharge Information You were seen/treated for: Ileostomy reversal and mucous fistula takedown You had these procedures: Ileostomy reversal and mucous fistula takedown Watch for these problems: Bleeding, confusion, fainting, fever >101, increased pain, redness/swelling/ unusual drainage from incisions, excessive diarrhea, or no bowel movements Call Surgeon to remove: Vadim Do not soak the wound: Yes Daily wet to dry dressings: No No bath, but you may shower: Yes Special Instructions: take bactrim for your urine infection continue lomotil for loose stool dry dressing changes daily or every other day if no wound drainage. Diet Continue normal diet: Yes Activity Full Activity/No Limits: No Activity Self Limited: Yes Pounds, do NOT lift more than: 10 (x 2 weeks) Activity Limited to: Weight bear as tolerated Acute Coronary Syndrome Inclusion Criteria At DC or during hospital stay patient has or had the following: ACS DIAGNOSIS No Discharge Core Measures Meds if any: Prescribed or Continued at Discharge Meds if any: NOT Prescribed or Continued at Discharge Congestive Heart Failure Inclusion Criteria At DC or during hospital stay patient has or had the following: CHF DIAGNOSIS No Discharge Core Measures Meds if any: Prescribed or Continued at Discharge Meds if any: NOT Prescribed or Continued at Discharge Cerebrovascular accident Inclusion Criteria At DC or during hospital stay patient has or had the following: CVA/TIA Diagnosis No Discharge Core Measures Meds if any: Prescribed or Continued at Discharge Meds if any: NOT Prescribed or Continued at Discharge Venous thromboembolism Inclusion Criteria VTE Diagnosis No VTE Type NONE VTE Confirmed by (Test) NONE Discharge Core Measures - Per Current guidelines, there needs to be overlap - treatment for the first 5 days of Warfarin therapy. - If discharged on Warfarin prior to 5 days of - overlap therapy, the patient will need to be - assessed for post discharge needs including - *Post discharge parental anticoagulation - *Warfarin and/or parental anticoagulation education - *Follow up date to check INR post discharge At least 5 days overlap therapy as Inpatient No Meds if any: Prescribed or Continued at Discharge Note: Overlap Therapy is Warfarin and Anticoagulant Meds if any: NOT Prescribed or Continued at Discharge
--- NOTE | 2018-02-10 16:18 | Admission Core Measures ---
Acute Coronary Syndrome (CM) ACS Core Measures Acute Coronary Syndrome Diagnosis No Congestive Heart Failure (NEW) CHF Core Measures Congestive Heart Failure Diagnosis No Cerebrovascular Accident CVA Core Measures CVA/TIA Diagnosis No Venous Thromboembolism VTE Core Dwaine (View Protocol) VTE Risk Factors No risk factors No Mechanical VTE Prophylaxis d/t N/A MechProphylax Ordered No VTE Pharm Prophylaxis d/t NA PharmProphylax ordered Problem List As ranked by this Provider includes Assessment & Plan 1. Crohn's disease 2. Status post reversal of ileostomy HOME MEDS Home Med List Albuterol Sulfate (Proair Hfa) 90 MCG HFA.AER.AD 2 PUF INH Q4-6 PRN PRN breathing Dicyclomine HCl 20 MG TABLET 1 TAB PO 4 TIMES/DAY ABD CRAMPS (Reported) Loperamide HCl (Imodium A-D) 2 MG CAPSULE 1 CAP PO PRN DIARRHEA (Reported) Melatonin 3 MG TABLET 1 TAB PO QPM SLEEP (Reported)
[2018-02-10 18:09] VITALS: BP 118/64
--- NOTE | 2018-02-10 18:57 | PN- General Surgery ---
Subjective Subjective: Patient with moderate pain in the abdominal region. No fever no flulike illness. She is recovering well from anesthesia. There is no nausea or vomiting. Objective Vital Signs and I&Os Vital Signs Date Time Temp Pulse Resp B/P B/P Pulse O2 O2 Flow FiO2 Mean Ox Delivery Rate 02/10 1809 98.3 90 20 118/64 95 Room Air Physical Exam: Well-developed well-nourished no apparent distress. HEENT: Atraumatic, extraocular motion intact Neck: Supple, no lymphadenopathy Respiratory: No respiratory distress Abdomen: Minimal distention. Appropriate tenderness noted. Abdominal dressing clean dry and intact. Extremities: No edema, no calf pain Neuro: Alert and oriented x3 Psych: Mood affect normal, normal memory normal judgment. Skin: Warm and dry, no rash on exposed skin Assessment/Plan Assessment/Plan Postop day #0 status post reversal of ileostomy and mucous fistula N.p.o. IV fluids Monitor for return of bowel function Pain medication as needed Out of bed, ambulate Follow a.m. labs Heparin for DVT prophylaxis, subcutaneous, ALPS Reinforce dressing as needed Inch packing out daily to both previous stoma sites starting tomorrow cont Michael Core Measures Venous Thromboembolism VTE Risk Factors No risk factors No Mechanical VTE Prophylaxis d/t N/A MechProphylax Ordered No VTE Pharm Prophylaxis d/t NA PharmProphylax ordered
[2018-02-10 22:46] VITALS: BP 104/60
[2018-02-11 06:00] VITALS: BP 108/50
--- NOTE | 2018-02-11 09:08 | PN- General Surgery ---
See Addendum Subjective Subjective: pod#1 s/p ostomy reversal sitting up in chair this am /10 pain(h/o narc use) denies cp, sob has some belching now but no voiting denies flatus/bm Objective Vital Signs and I&Os Vital Signs Date Time Temp Pulse Resp B/P B/P Pulse O2 O2 Flow FiO2 Mean Ox Delivery Rate 02/11 600 97.6 56 14 108/50 98 Room Air 02/10 2246 97.6 60 20 104/60 95 Room Air 02/10 2158 Room Air Room Air 02/10 1809 98.3 90 20 118/64 95 Room Air Intake & Output 02/11 1600 02/11 0800 02/11 0000 02/10 1600 02/10 0802/10 0000 Intake Total 640 2260 Output Total 525 380 Balance 115 1880 Intake, IV 520 2260 Intake, Oral 120 Output, Urine 525 380 Patient 114 lb 91 lb 15.98 oz Weight Weight Bed scale Bed scale Measurement Method Physical Exam: cv: rrr lungs: clear abd: softly distended drsgs intact ext: warm, distal cms intact tirado with clear urine Assessment/Plan Assessment/Plan surgical stable plan d/c fley titrate pain meds oob chiar/ambulate await improved bowel fxn grover change drsg when patient rturns to bed Core Measures Venous Thromboembolism VTE Risk Factors No risk factors No Mechanical VTE Prophylaxis d/t N/A MechProphylax Ordered No VTE Pharm Prophylaxis d/t NA PharmProphylax ordered
[2018-02-11 14:24] VITALS: BP 96/52
[2018-02-11 14:46] VITALS: BP 102/60
[2018-02-11 21:10] VITALS: BP 112/58
[2018-02-12 06:25] VITALS: BP 108/60
--- NOTE | 2018-02-12 09:23 | PN- General Surgery ---
See Addendum Subjective Subjective: Patient reports multiple loose bms yesterday, which are loose in nature. Reports pain controlled with Dilaudid, reports intermittent burning pain in distribution of her midline incision. Requesting to eat. Current smoker and is requesting a nicotine patch. Denies nausea or vomiting and reports ambulating in the halls freqently. Refused labs this morning. Per nursing, stool was reportedly in her urine, which patient denies. Objective Vital Signs and I&Os Vital Signs Date Time Temp Pulse Resp B/P B/P Pulse O2 O2 Flow FiO2 Mean Ox Delivery Rate 02/12 625 99.9 77 20 108/60 96 02/11 2110 98.5 84 17 112/58 98 Room Air 02/11 1446 64 102/60 02/11 1424 98.4 63 18 96/52 99 Intake & Output 02/12 1600 02/12 0800 02/12 0000 02/11 1600 02/11 0800 02/11 0000 Intake Total 600 873 411 1151 Output Total 251 525 380 Balance 600 553 686 1630 Intake, IV 600 469 167 5111 Intake, Oral 0 120 Number 1 4 Bowel Movements Output, Stool 1 Output, Urine 250 525 380 Patient 114 lb 91 lb 15.98 oz Weight Weight Bed scale Bed scale Measurement Method Physical Exam: Gen - resting comfortably in nad Cardiac - S1S2 Lungs - CTAB Abd - soft, flat, mildine incision closed with daniela healing well no signs of infection, prev stomas closed with daniela and packing in place, 2 in removed, no purulence noted, mild surrounding erythema L > R, redressed with gauze, tape, ttp incisionally, no rebound, guarding noted Ext - alps in place, no edema or calf pain Current Medications: Current Medications Sig/Stefanie Start time Last Medication Dose Route Stop Time Status Admin Acetaminophen 1,000 MG Q6H 02/11 1600 DC 02/12 N/A 1 UNIT IV 02/12 0414 0345 Acetaminophen 1,000 MG Q6H 02/11 0845 DC 02/11 N/A 1 UNIT IV 02/12 0259 1025 Albuterol Sulfate 2 PUF Q4-6 PRN PRN 02/10 1615 AC INH Dextrose/Sodium 1,000 ML Q13H 02/11 0900 AC 02/11 Chloride IV 2345 Diphenhydramine HCl 50 MG Q6P PRN 02/10 1600 AC IV Docusate Sodium 100 MG BID 02/10 2100 DC 02/10 PO 2137 Heparin Sodium 5,000 UNIT Q8 02/10 220 AC (Porcine) SC Hydromorphone HCl 0.6 MG Q2-3 HRS NEEDED.. 02/12 930 AC IV Hydromorphone HCl 1 MG Q2-3 HRS NEEDED.. 02/11 1315 DC 02/12 IV 0831 Ketorolac 30 MG Q6P PRN 02/11 930 AC 02/12 Tromethamine IV 0229 Loperamide HCl 2 MG DAILY NEEDED PRN 02/12 930 AC PO Ondansetron HCl 4 MG Q6P PRN 02/10 1615 AC IV Oxycodone HCl 5 MG Q4-6 PRN PRN 02/12 930 AC PO Oxycodone HCl 10 MG Q4-6 PRN PRN 02/12 930 AC PO Pantoprazole Sodium 40 MG DAILY 02/11 900 AC 02/12 IV 31 Polyethylene Glycol 17 GM DAILY 02/11 900 DC PO Results Last 48 Hours of Labs: Laboratory Tests 02/11 609 Chemistry Sodium (137 - 145 mmol/L) 133 L Potassium (3.5 - 5.1 mmol/L) 3.6 Chloride (98 - 107 mmol/L) 102 Carbon Dioxide (22 - 30 mmol/L) 25 Anion Gap (5 - 16) 6 BUN (7 - 17 mg/dL) 13 Creatinine (0.5 - 1.0 mg/dL) 0.6 Estimated GFR (>60 ml/min) > 60 BUN/Creatinine Ratio (7 - 25 %) 21.7 Assessment/Plan Assessment/Plan 52 F POD 2 s/p ileostomy reversal with return of bowel function Advance to reg diet D/c IVF once adqeuate oral intake Transition to oral analgesics Resume imodium Nicotine patch Daily dressing changes/packing removal Monitor urine/stool outpt for ?colovaginal fistula DVT ppx - alps, hsq OOB ambulate TRC, encourage IS Refused labs today Anticipate d/c within 24-48 hours D/w Dr. Canela Core Measures Venous Thromboembolism VTE Risk Factors No risk factors No Mechanical VTE Prophylaxis d/t N/A MechProphylax Ordered No VTE Pharm Prophylaxis d/t NA PharmProphylax ordered
[2018-02-12 15:10] VITALS: BP 130/66
--- NOTE | 2018-02-12 18:38 | Operative Report ---
Operative/Inv Procedure Report Surgery Date: 02/10/18 Name of Procedure: Reversal of ileostomy and mucous fistula Pre-Operative Diagnosis: Ileostomy and mucous fistula, Crohn's disease Post-Operative Diagnosis: Same Estimated Blood Loss: scant Surgeon/[employer] Founder: Rola NAQVI,Vikash NIETO Anesthesia: general endotracheal tube Operative/Procedure Note Note: Patient was positioned supine, after induction of general anesthesia, a tap block was performed, IV antibiotics were given and both ostomies were sutured closed with 2-0 silk, and then the abdomen was clipped prepped and draped from the nipples to the groin in the usual sterile fashion. A midline incision was made with a 10 blade, ellipsing out the previous scar, the underlying scar was tented up and incised entering the abdomen she had an extremely thin abdominal wall the incision was fully opened there was some deep inferior adhesions to the omentum which were freed up so that we could mobilize the left colon. Next we disconnected the ostomies from the abdominal wall first ileostomy by using cautery to cut around the sutured mucosa and deepening that through the abdominal wall until it was completely freed we did this mostly from outside in and at the end from inside out the freed ileum was then mobilized from surrounding adhesions that I could reach across the midline we were interested in just freeing up the 2 ostomies not really to lyse adhesions throughout her abdomen she had no signs of obstruction preop. Next the mucous fistula on the left was disconnected in similar fashion we had to mobilize this portion of colon from the left lateral wall a little bit but these 2 limbs easily overlapped each other with no tension. Next a side to side functional end to end stapled anastomosis was made using a MARIPOSA stapler with two 80 mm cartridges, the first to make a common enterotomy, and the second to "T" -off the first. Before actually firing the stapler first we made sure that the distal small bowel and transverse colon are lined up parallel not twisted or stretched and that the mesenteric fat is cleared off circumferentially where the daniela will go, we placed a 3-0 silk suture at the top and at the bottom to line them up, then make adjacent enterotomies on the antimesenteric borders inserted the stapler check that fat hasn't rolled in posteriorly, and fired. The second firing which completes the anastomosis and and removes those cutaneous ostomy ends, next the staple line is checked for hemostasis with cautery but also the corners are dunked with 3-0 silk [place]. Next the abdomen is irrigated checked for hemostasis small bowel is run and checked for any twisting and positioned down and away from the mesenteric defect, repeatedly checking the anastomosis for any bleeding or twisting. The position of the NG tube was checked and then the incision is closed in layers using 2 continuous runs of single 0 Maxon suture for the fascia then the subcutaneous layer is irrigated again, reapproximated subdermally with interrupted 3-0 Vicryl, followed by skin daniela and an island dressing. The 2 ostomies are closed in layers as well using 0 Vicryl for the peritoneum transversalis fascia and then #1 Maxon for the rectus fascia the subcutaneous space is with open with iodoform gauze tape and the skin is stapled leaving a small opening for the wick laterally, followed by gauze and tape. EBL minimal lap and sponge counts correct wound expectancy was clean- contaminated, IV fluids crystalloid complications none, patient tolerated the procedure well and was returned to the recovery room in satisfactory condition.
[2018-02-12 20:50] LABS: ABSOLUTE BASOPHIL COUNT 0 /CUMM (0.0-0.2); ABSOLUTE EOSINOPHIL COUNT 0.2 /CUMM (0.0-0.7); ABSOLUTE GRANULOCYTE CT 5.8 /CUMM (1.4-6.5); ABSOLUTE LYMPH COUNT 1.5 /CUMM (1.2-3.4); ABSOLUTE MONOCYTE COUNT 0.7 /CUMM (0.10-0.60); BASOPHIL % 0.3 % (0.0-2.0); EOSINOPHIL % 1.9 % (0-5); GRANULOCYTE % 70.9 % (42.2-75.2); MEAN CORPUSCULAR VOLUME 94.2 FL (81.0-99.0); MEAN PLATELET VOLUME 8.4 FL (7.4-10.4); PLATELET COUNT 196 /CUMM (130-400); RBC DISTRIBUTION WIDTH 13.7 % (11.5-14.5); RED BLOOD CELL CT 3.36 /CUMM (4.20-5.40); WHITE BLOOD CELL COUNT 8.2 /CUMM (4.8-10.8)
[2018-02-12 20:58] LABS: HEMATOCRIT 31.6 % (37-47)
[2018-02-12 22:51] VITALS: BP 86/49
[2018-02-13 07:07] VITALS: BP 98/60
--- NOTE | 2018-02-13 08:23 | PN- General Surgery ---
See Addendum Subjective Subjective: Patient seen and evaluated. No events overnight. Patient states she feels well this morning with only minmal abdominal pain. She repots multiple loose BMs yesterday. She does endorse a appetiti and his tolerating regular diet. Of note, has temp of TMAX 102.5 that resolved with tylenol/ambulating - afebrile this morning. At that time patient did have workup with BC, UC, labs - pending. Otherwise, pt feels well and does not offer any further complaints. Objective Vital Signs and I&Os Vital Signs Date Time Temp Pulse Resp B/P B/P Pulse O2 O2 Flow FiO2 Mean Ox Delivery Rate 02/13 0707 98.2 84 18 98/60 97 02/12 2251 98.9 74 18 86/49 95 Room Air 02/12 1808 100.5 02/12 1709 102.5 02/12 1510 98.8 101 18 130/66 96 Intake & Output 02/13 1600 02/13 0800 02/13 0000 02/12 1600 02/12 0800 02/12 0000 Intake Total 240 800 600 Output Total 2 Balance 240 798 600 Intake, IV 200 600 Intake, Oral 240 600 Number 1 4 Bowel Movements Output, Stool 2 Physical Exam: Gen - resting comfortably in nad CV - S1S2 Pulm - CTAB Abd - soft, midline and 2 horizonal incision closed with daniela that are well approximated, mild surround erythema, packing in place in 2 lateral wounds, no obvious purulence or drainage, mild ttp emily-incional, some erythema at tape sites, no rebound/distention/guarding Ext - alps in place, no edema or calf pain Current Medications: Current Medications Sig/Stefanie Start time Last Medication Dose Route Stop Time Status Admin Acetaminophen 1,000 MG TID PRN 02/12 1700 AC 02/12 PO 1709 Albuterol Sulfate 2 PUF Q4-6 PRN PRN 02/10 1615 AC INH Dextrose/Sodium 1,000 ML Q13H 02/11 0900 DC 02/11 Chloride IV 2345 Diphenhydramine HCl 50 MG Q6P PRN 02/10 1600 AC IV Heparin Sodium 5,000 UNIT Q8 02/10 2200 AC (Porcine) SC Hydromorphone HCl 0.6 MG Q2-3 HRS NEEDED.. 02/12 0930 AC IV Hydromorphone HCl 1 MG Q2-3 HRS NEEDED.. 02/11 1315 DC 02/12 IV 0831 Ketorolac 30 MG Q6P PRN 02/11 0930 AC 02/12 Tromethamine IV 0229 Loperamide HCl 2 MG DAILY NEEDED PRN 02/12 930 DC PO Nicotine 14 MG DAILY 02/12 1004 AC 02/13 TOP 0817 Ondansetron HCl 4 MG Q6P PRN 02/10 1615 AC IV Oxycodone HCl 5 MG Q4-6 PRN PRN 02/12 0930 AC PO Oxycodone HCl 10 MG Q4-6 PRN PRN 02/12 0930 AC 02/13 PO 08 Pantoprazole Sodium 40 MG DAILY 02/11 0900 DC 02/12 IV 0831 Potassium Chloride 40 MEQ ONCE ONE 02/12 2130 DC 02/12 PO 02/12 2131 215 Results Last 48 Hours of Labs: Laboratory Tests 02/1340 2025 Chemistry Sodium Pending Potassium Pending Chloride Pending Carbon Dioxide Pending Anion Gap Pending BUN Pending Creatinine Pending BUN/Creatinine Ratio Pending Urines Urinalysis LIGHT H Urine Color (YEL,AMB,STR) YEL Urine Clarity (CLEAR) CLEAR Urine pH (5.0 - 8.0) 6.0 Ur Specific [place] (1.001 - 1.035) <= 1.005 Urine Protein (NEG,<30 MG/DL) NEG Urine Ketones (NEG) NEG Urine Nitrite (NEG) NEG Urine Bilirubin (NEG) NEG Urine Urobilinogen (0.1 - 1.0 EU/dl) 0.2 Ur Leukocyte Esterase (NEG) MOD H Ur Microscopic SEDIMENT EXAMINED Urine RBC (0 - 5 /HPF) 1-3 Urine WBC (0 - 2 /HPF) 1-3 H Ur Epithelial Cells (NONE,FEW) FEW Urine Bacteria (NEG/NONE) MOD H Urine Mucus (FEW,NONE) RARE Urine Hemoglobin (NEG) MOD H Urine Glucose (N MG/DL) NEG 02/12 1951 Chemistry Sodium (137 - 145 mmol/L) 132 L Potassium (3.5 - 5.1 mmol/L) 2.8 *L Chloride (98 - 107 mmol/L) 101 Carbon Dioxide (22 - 30 mmol/L) 26 Anion Gap (5 - 16) 5 BUN (7 - 17 mg/dL) 8 Creatinine (0.5 - 1.0 mg/dL) 0.8 Estimated GFR (>60 ml/min) > 60 BUN/Creatinine Ratio (7 - 25 %) 10.0 Hematology CBC w Diff NO MAN DIFF REQ WBC (4.8 - 10.8 /CUMM) 8.2 RBC (4.20 - 5.40 /CUMM) 3.36 L Hgb (12.0 - 16.0 G/DL) 10.7 L Hct (37 - 47 %) 31.6 L MCV (81.0 - 99.0 FL) 94.2 MCH (27.0 - 31.0 PG) 32.0 H MCHC (33.0 - 37.0 G/DL) 34.0 RDW (11.5 - 14.5 %) 13.7 Plt Count (130 - 400 /CUMM) 196 MPV (7.4 - 10.4 FL) 8.4 Gran % (42.2 - 75.2 %) 70.9 Lymphocytes % (20.5 - 51.1 %) 18.5 L Monocytes % (1.7 - 9.3 %) 8.4 Eosinophils % (0 - 5 %) 1.9 Basophils % (0.0 - 2.0 %) 0.3 Absolute Granulocytes (1.4 - 6.5 /CUMM) 5.8 Absolute Lymphocytes (1.2 - 3.4 /CUMM) 1.5 Absolute Monocytes (0.10 - 0.60 /CUMM) 0.7 H Absolute Eosinophils (0.0 - 0.7 /CUMM) 0.2 Absolute Basophils (0.0 - 0.2 /CUMM) 0 Assessment/Plan Assessment/Plan 52 F POD 3 s/p ileostomy reversal with return of bowel function. Diet has been advance to regular. Post op course complicated by fever that was worked up and now afebrile for >12 hr - likly lung related. Continue reg diet DC IV pain meds Holding Imodium Nicotine patch Daily dressing changes/packing removal Monitor urine/stool outpt for ?colovaginal fistula - no evidence of this per patient DVT ppx - alps, hsq OOB ambulate pulmonary toilet with deep breaking/IS F/u chem/cbc/BC/UC Likley stable for d/c today Will D/w Dr. Canela Core Measures Venous Thromboembolism VTE Risk Factors No risk factors No Mechanical VTE Prophylaxis d/t N/A MechProphylax Ordered No VTE Pharm Prophylaxis d/t NA PharmProphylax ordered <Electronically signed by Vikash Canela MD Core Measures Venous Thromboembolism VTE Risk Factors No risk factors No Mechanical VTE Prophylaxis d/t N/A MechProphylax Ordered No VTE Pharm Prophylaxis d/t NA PharmProphylax ordered
[2018-02-13 11:46] LABS: ABSOLUTE BASOPHIL COUNT 0 /CUMM (0.0-0.2); ABSOLUTE EOSINOPHIL COUNT 0.2 /CUMM (0.0-0.7); ABSOLUTE GRANULOCYTE CT 5.1 /CUMM (1.4-6.5); ABSOLUTE LYMPH COUNT 1.4 /CUMM (1.2-3.4); ABSOLUTE MONOCYTE COUNT 0.6 /CUMM (0.10-0.60); BASOPHIL % 0.3 % (0.0-2.0); EOSINOPHIL % 2.6 % (0-5); GRANULOCYTE % 70.1 % (42.2-75.2); HEMATOCRIT 31.8 % (37-47); MEAN CORPUSCULAR HGB 32.1 PG (27.0-31.0); MEAN CORPUSCULAR HGB CONC 33.8 G/DL (33.0-37.0); MEAN CORPUSCULAR VOLUME 94.8 FL (81.0-99.0); MEAN PLATELET VOLUME 8.8 FL (7.4-10.4); PLATELET COUNT 179 /CUMM (130-400); RBC DISTRIBUTION WIDTH 13.9 % (11.5-14.5); RED BLOOD CELL CT 3.36 /CUMM (4.20-5.40); WHITE BLOOD CELL COUNT 7.3 /CUMM (4.8-10.8)
[2018-02-13 14:13] VITALS: BP 98/52
[2018-02-13 22:00] VITALS: BP 125/72
[2018-02-14 06:30] VITALS: BP 109/60
[2018-02-14 07:29] LABS: ABSOLUTE BASOPHIL COUNT 0 /CUMM (0.0-0.2); ABSOLUTE EOSINOPHIL COUNT 0.3 /CUMM (0.0-0.7); ABSOLUTE GRANULOCYTE CT 4.7 /CUMM (1.4-6.5); ABSOLUTE LYMPH COUNT 1.7 /CUMM (1.2-3.4); ABSOLUTE MONOCYTE COUNT 0.7 /CUMM (0.10-0.60); BASOPHIL % 0.5 % (0.0-2.0); EOSINOPHIL % 4.3 % (0-5); GRANULOCYTE % 62.8 % (42.2-75.2); HEMATOCRIT 34.1 % (37-47); MEAN CORPUSCULAR HGB 32.2 PG (27.0-31.0); MEAN CORPUSCULAR HGB CONC 34.2 G/DL (33.0-37.0); MEAN CORPUSCULAR VOLUME 93.9 FL (81.0-99.0); MEAN PLATELET VOLUME 8.1 FL (7.4-10.4); PLATELET COUNT 239 /CUMM (130-400); RED BLOOD CELL CT 3.63 /CUMM (4.20-5.40); WHITE BLOOD CELL COUNT 7.5 /CUMM (4.8-10.8)
--- NOTE | 2018-02-14 07:30 | PN- General Surgery ---
See Addendum Subjective Subjective: pt in bed, tolerating diet. states she had more than 4 loose stools yesterday and has rectal urgency when she walks. Complains of what she calls "gas pain", comes and goes throughout the day. ambulating Also, states she thinks she is passed small amount of stool from her vagina yesterday, suspected a fistula. No dysurea. Objective Vital Signs and I&Os Vital Signs Date Time Temp Pulse Resp B/P B/P Pulse O2 O2 Flow FiO2 Mean Ox Delivery Rate 02/14 2204 99.7 02/13 2200 99.4 87 18 125/72 98 Room Air 02/13 2105 100.3 02/13 1413 99.5 81 18 98/52 98 Room Air 02/13 0800 95 Room Air Intake & Output 02/14 0000 02/13 1600 02/13 0800 02/13 0000 02/12 1600 Intake Total 240 240 600 240 800 Output Total 1 2 Balance 240 240 599 240 798 Intake, IV 200 Intake, Oral 240 240 600 240 600 Output, Stool 1 2 Patient 114 lb Weight Physical Exam: gen- NAD resp- clear cardiac-RRR abd- flat, soft, +bs, NT. daniela in all incisions, packing is out, no erythema , minimal serous drainage, no signs of infection. clean dressing applied Current Medications: Current Medications Sig/Stefanie Start time Last Medication Dose Route Stop Time Status Admin Acetaminophen 1,000 MG TID PRN 02/12 1700 AC 02/13 PO 2105 Albuterol Sulfate 2 PUF Q4-6 PRN PRN 02/10 1615 AC INH Diphenhydramine HCl 50 MG Q6P PRN 02/10 1600 AC IV Heparin Sodium 5,000 UNIT Q8 02/10 2200 AC (Porcine) SC Hydromorphone HCl 0.6 MG Q2-3 HRS NEEDED.. 02/12 0930 DC IV Ketorolac 30 MG Q6P PRN 02/11 0930 AC 02/12 Tromethamine IV 0229 Nicotine 14 MG DAILY 02/12 1004 AC 02/13 TOP 0817 Ondansetron HCl 4 MG Q6P PRN 02/10 1615 AC IV Oxycodone HCl 5 MG Q4-6 PRN PRN 02/12 0930 AC PO Oxycodone HCl 10 MG Q4-6 PRN PRN 02/12 0930 AC 02/14 PO 0338 Patient Medication 1 ED ONE ONE 02/13 0900 DC Teaching ED 02/13 0901 Potassium Chloride 40 MEQ ONCE ONE 02/13 1630 DC 02/13 PO 02/13 1631 1654 Results Last 48 Hours of Labs: Laboratory Tests 02/14 02/13 0655 1110 Chemistry Sodium (137 - 145 mmol/L) Pending 132 L Potassium (3.5 - 5.1 mmol/L) Pending 3.2 L Chloride (98 - 107 mmol/L) Pending 102 Carbon Dioxide (22 - 30 mmol/L) Pending 24 Anion Gap (5 - 16) Pending 7 BUN (7 - 17 mg/dL) Pending 6 L Creatinine (0.5 - 1.0 mg/dL) Pending 0.7 Estimated GFR (>60 ml/min) > 60 BUN/Creatinine Ratio (7 - 25 %) Pending 8.6 Hematology CBC w Diff Pending NO MAN DIFF REQ WBC (4.8 - 10.8 /CUMM) Pending 7.3 RBC (4.20 - 5.40 /CUMM) Pending 3.36 L Hgb (12.0 - 16.0 G/DL) Pending 10.8 L Hct (37 - 47 %) Pending 31.8 L MCV (81.0 - 99.0 FL) Pending 94.8 MCH (27.0 - 31.0 PG) Pending 32.1 H MCHC (33.0 - 37.0 G/DL) Pending 33.8 RDW (11.5 - 14.5 %) Pending 13.9 Plt Count (130 - 400 /CUMM) Pending 179 MPV (7.4 - 10.4 FL) Pending 8.8 Gran % (42.2 - 75.2 %) 70.1 Lymphocytes % (20.5 - 51.1 %) 18.8 L Monocytes % (1.7 - 9.3 %) 8.2 Eosinophils % (0 - 5 %) 2.6 Basophils % (0.0 - 2.0 %) 0.3 Absolute Granulocytes (1.4 - 6.5 /CUMM) 5.1 Absolute Lymphocytes (1.2 - 3.4 /CUMM) 1.4 Absolute Monocytes (0.10 - 0.60 /CUMM) 0.6 Absolute Eosinophils (0.0 - 0.7 /CUMM) 0.2 Absolute Basophils (0.0 - 0.2 /CUMM) 0 02/12 Chemistry Sodium (137 - 145 mmol/L) 132 L Potassium (3.5 - 5.1 mmol/L) 2.8 *L Chloride (98 - 107 mmol/L) 101 Carbon Dioxide (22 - 30 mmol/L) 26 Anion Gap (5 - 16) 5 BUN (7 - 17 mg/dL) 8 Creatinine (0.5 - 1.0 mg/dL) 0.8 Estimated GFR (>60 ml/min) > 60 BUN/Creatinine Ratio (7 - 25 %) 10.0 Hematology CBC w Diff NO MAN DIFF REQ WBC (4.8 - 10.8 /CUMM) 8.2 RBC (4.20 - 5.40 /CUMM) 3.36 L Hgb (12.0 - 16.0 G/DL) 10.7 L Hct (37 - 47 %) 31.6 L MCV (81.0 - 99.0 FL) 94.2 MCH (27.0 - 31.0 PG) 32.0 H MCHC (33.0 - 37.0 G/DL) 34.0 RDW (11.5 - 14.5 %) 13.7 Plt Count (130 - 400 /CUMM) 196 MPV (7.4 - 10.4 FL) 8.4 Gran % (42.2 - 75.2 %) 70.9 Lymphocytes % (20.5 - 51.1 %) 18.5 L Monocytes % (1.7 - 9.3 %) 8.4 Eosinophils % (0 - 5 %) 1.9 Basophils % (0.0 - 2.0 %) 0.3 Absolute Granulocytes (1.4 - 6.5 /CUMM) 5.8 Absolute Lymphocytes (1.2 - 3.4 /CUMM) 1.5 Absolute Monocytes (0.10 - 0.60 /CUMM) 0.7 H Absolute Eosinophils (0.0 - 0.7 /CUMM) 0.2 Absolute Basophils (0.0 - 0.2 /CUMM) 0 Urines Urinalysis LIGHT H Urine Color (YEL,AMB,STR) YEL Urine Clarity (CLEAR) CLEAR Urine pH (5.0 - 8.0) 6.0 Ur Specific [place] (1.001 - 1.035) <= 1.005 Urine Protein (NEG,<30 MG/DL) NEG Urine Ketones (NEG) NEG Urine Nitrite (NEG) NEG Urine Bilirubin (NEG) NEG Urine Urobilinogen (0.1 - 1.0 EU/dl) 0.2 Ur Leukocyte Esterase (NEG) MOD H Ur Microscopic SEDIMENT EXAMINED Urine RBC (0 - 5 /HPF) 1-3 Urine WBC (0 - 2 /HPF) 1-3 H Ur Epithelial Cells (NONE,FEW) FEW Urine Bacteria (NEG/NONE) MOD H Urine Mucus (FEW,NONE) RARE Urine Hemoglobin (NEG) MOD H Urine Glucose (N MG/DL) NEG Assessment/Plan Assessment/Plan 52 F POD 4 s/p ileostomy reversal with return of bowel function. Diet has been advance to regular. Post op course complicated by fever that was worked up and now with low grade temps 99-100 - likly lung related. Urine culture with gram negative rods- will discuss with dr Carmona Continue reg diet DC IV pain meds Holding Imodium for now per dr Carmona Nicotine patch Monitor urine/stool outpt for ?colovaginal fistula -pt states she thought she passed some stool from her vagina while voiding yesterday DVT ppx - alps, hsq OOB ambulate pulmonary toilet with deep breaking/IS F/u chem/cbc- treating hypokalemia Will D/w Dr. Canela Core Measures Venous Thromboembolism VTE Risk Factors No risk factors No Mechanical VTE Prophylaxis d/t N/A MechProphylax Ordered No VTE Pharm Prophylaxis d/t NA PharmProphylax ordered
[2018-02-14 14:08] VITALS: BP 109/73
[2018-02-14 21:16] VITALS: BP 100/58
[2018-02-15 06:32] VITALS: BP 94/60
--- NOTE | 2018-02-15 07:47 | PN- General Surgery ---
Subjective Subjective: pt in bed, tolerating reg diet, complains of >10 loose stools yesterday. abd pain less but still feels bloated with some gas pain. denies fevers, denies dysurea. ambulating Objective Vital Signs and I&Os Vital Signs Date Time Temp Pulse Resp B/P B/P Pulse O2 O2 Flow FiO2 Mean Ox Delivery Rate 02/15 0632 98.3 80 20 94/60 94 Room Air 02/14 2116 97.6 85 20 100/58 96 02/14 1408 87 18 109/73 97 Room Air Intake & Output 02/15 0802/15 0000 02/14 1600 02/14 0802/14 0000 02/13 1600 Intake Total 400 720 240 240 600 Output Total 600 1 Balance -200 720 240 240 599 Intake, IV 0 Intake, Oral 400 720 240 240 600 Number 2 15 Bowel Movements Output, Stool 1 Output, Urine 600 Patient 114 lb Weight Physical Exam: gen- NAD resp- clear cardiac- rrr abd- nd, soft, +bs, tender around incisions. daniela in place, no signs of infection Current Medications: Current Medications Sig/Stefanie Start time Last Medication Dose Route Stop Time Status Admin Acetaminophen 1,000 MG TID PRN 02/12 1700 AC 02/14 PO 2142 Albuterol Sulfate 2 PUF Q4-6 PRN PRN 02/10 1615 AC INH Diphenhydramine HCl 50 MG Q6P PRN 02/10 1600 AC IV Heparin Sodium 5,000 UNIT Q8 02/10 2200 AC (Porcine) SC Ketorolac 30 MG Q6P PRN 02/11 0930 AC 02/12 Tromethamine IV 0229 Loperamide HCl 2 MG BID 02/14 0900 AC 02/14 PO 2005 Nicotine 14 MG DAILY 02/12 1004 AC 02/14 TOP 0905 Ondansetron HCl 4 MG Q6P PRN 02/10 1615 AC IV Oxycodone HCl 5 MG Q4-6 PRN PRN 02/12 0930 AC PO Oxycodone HCl 10 MG Q4-6 PRN PRN 02/12 0930 AC 02/15 PO 0741 Patient Medication 1 ED ONE ONE 02/14 1515 DC 02/14 Teaching ED 02/14 1516 2006 Trimethoprim/ 1 TAB BID 02/14 2100 AC 02/14 Sulfamethoxazole PO 2004 Trimethoprim/ 1 TAB ONCE ONE 02/14 1356 DC 02/14 Sulfamethoxazole PO 02/14 1357 1603 Results Last 48 Hours of Labs: Laboratory Tests 02/15 02/14 0711 0655 Chemistry Sodium (137 - 145 mmol/L) Pending 135 L Potassium (3.5 - 5.1 mmol/L) Pending 3.7 Chloride (98 - 107 mmol/L) Pending 104 Carbon Dioxide (22 - 30 mmol/L) Pending 25 Anion Gap (5 - 16) Pending 6 BUN (7 - 17 mg/dL) Pending 6 L Creatinine (0.5 - 1.0 mg/dL) Pending 0.8 Estimated GFR (>60 ml/min) > 60 BUN/Creatinine Ratio (7 - 25 %) Pending 7.5 Hematology CBC w Diff NO MAN DIFF REQ WBC (4.8 - 10.8 /CUMM) 7.5 RBC (4.20 - 5.40 /CUMM) 3.63 L Hgb (12.0 - 16.0 G/DL) 11.7 L Hct (37 - 47 %) 34.1 L MCV (81.0 - 99.0 FL) 93.9 MCH (27.0 - 31.0 PG) 32.2 H MCHC (33.0 - 37.0 G/DL) 34.2 RDW (11.5 - 14.5 %) 14.0 Plt Count (130 - 400 /CUMM) 239 MPV (7.4 - 10.4 FL) 8.1 Gran % (42.2 - 75.2 %) 62.8 Lymphocytes % (20.5 - 51.1 %) 23.3 Monocytes % (1.7 - 9.3 %) 9.1 Eosinophils % (0 - 5 %) 4.3 Basophils % (0.0 - 2.0 %) 0.5 Absolute Granulocytes (1.4 - 6.5 /CUMM) 4.7 Absolute Lymphocytes (1.2 - 3.4 /CUMM) 1.7 Absolute Monocytes (0.10 - 0.60 /CUMM) 0.7 H Absolute Eosinophils (0.0 - 0.7 /CUMM) 0.3 Absolute Basophils (0.0 - 0.2 /CUMM) 0 02/13 1110 Chemistry Sodium (137 - 145 mmol/L) 132 L Potassium (3.5 - 5.1 mmol/L) 3.2 L Chloride (98 - 107 mmol/L) 102 Carbon Dioxide (22 - 30 mmol/L) 24 Anion Gap (5 - 16) 7 BUN (7 - 17 mg/dL) 6 L Creatinine (0.5 - 1.0 mg/dL) 0.7 Estimated GFR (>60 ml/min) > 60 BUN/Creatinine Ratio (7 - 25 %) 8.6 Hematology CBC w Diff NO MAN DIFF REQ WBC (4.8 - 10.8 /CUMM) 7.3 RBC (4.20 - 5.40 /CUMM) 3.36 L Hgb (12.0 - 16.0 G/DL) 10.8 L Hct (37 - 47 %) 31.8 L MCV (81.0 - 99.0 FL) 94.8 MCH (27.0 - 31.0 PG) 32.1 H MCHC (33.0 - 37.0 G/DL) 33.8 RDW (11.5 - 14.5 %) 13.9 Plt Count (130 - 400 /CUMM) 179 MPV (7.4 - 10.4 FL) 8.8 Gran % (42.2 - 75.2 %) 70.1 Lymphocytes % (20.5 - 51.1 %) 18.8 L Monocytes % (1.7 - 9.3 %) 8.2 Eosinophils % (0 - 5 %) 2.6 Basophils % (0.0 - 2.0 %) 0.3 Absolute Granulocytes (1.4 - 6.5 /CUMM) 5.1 Absolute Lymphocytes (1.2 - 3.4 /CUMM) 1.4 Absolute Monocytes (0.10 - 0.60 /CUMM) 0.6 Absolute Eosinophils (0.0 - 0.7 /CUMM) 0.2 Absolute Basophils (0.0 - 0.2 /CUMM) 0 Assessment/Plan Assessment/Plan 52 F POD 5 s/p ileostomy reversal with return of bowel function. Post op course complicated by fever that was worked up - likly lung related. Passing stool from vagina, pt has a long history of a colovaginal history since the 1989' but it was thought that this may have closed while she had the ileostomy which now seems to not be the case. 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 Canela Core Measures Venous Thromboembolism VTE Risk Factors No risk factors No Mechanical VTE Prophylaxis d/t N/A MechProphylax Ordered No VTE Pharm Prophylaxis d/t NA PharmProphylax ordered
[2018-02-15] MEDS ORDERED: OXYCODONE HCL5 M1 PO (13:24)
[2018-02-15] MEDS ORDERED: DIPHENOXYLATE-1 EACH PO (13:24)
[2018-02-15] MEDS ORDERED: SULFAMETHOXAZO1 EAC1 PO (13:24)
--- NOTE | 2018-02-15 16:13 | Discharge Summary ---
Visit Information Visit Dates Admission Date: 02/10/18 Discharge Date: 02/15/18 Hospital Course Allergies: Coded Allergies: morphine (RASH 08/14/17) Discharge Instructions Medications at Discharge Discharge Medications: Stop taking the following medications: Dicyclomine HCl (Dicyclomine HCl) 20 MG TABLET ORAL 4 TIMES A DAY Qty = 60 Loperamide HCl (Imodium A-D) 2 MG CAPSULE ORAL as needed for DIARRHEA Continue taking these medications: Melatonin (Melatonin) 3 MG TABLET 1 Tablet ORAL Every night Comments: NOT GIVEN WHILE IN HOSPITAL Albuterol Sulfate (Proair Hfa) 90 MCG HFA.AER.AD 2 Puff Inhale through mouth EVERY 4-6 HOURS NEEDED as needed for breathing Qty = 1 Comments: NOT GIVEN WHILE IN HOSPITAL Start taking the following new medications: Diphenoxylate HCl/Atropine (Diphenoxylate-Atrop 2.5-0.025) 2.5 MG-0.025 MG TABLET 2.5 Milligram ORAL THREE TIMES DAILY Qty = 30 No Refills Comments: Last Taken:02/15/18 Time: 2:00 PM Oxycodone HCl (Oxycodone HCl) 5 MG TABLET 5-10 Milligram ORAL EVERY 4-6 HOURS NEEDED as needed for PAIN Qty = 36 No Refills Comments: Last Taken:02/15/18 Time: 11:30 AM Sulfamethoxazole/Trimethoprim (Sulfamethoxazole-Tmp Ds Tablet) 800 MG-160 MG TABLET 1 Tablet ORAL TWICE DAILY Qty = 10 No Refills Comments: Last Taken:02/15/18 Time: 9:45 AM
== END 2018-02-15 14:00 | DRG 330 ==
LOC: SDA 02-10 02:13 → ENRESERV 02-10 16:15 → ENTRNSPT 02-10 17:17 → EDTRNSPT 02-10 17:37 → EDTRNSPTSTS 02-10 17:37 → 2NB 02-10 17:46 → CMPTRNSPT 02-10 18:10 → ENPENDDIS 02-15 13:31 → ENTRNSPT 02-15 13:55 → EDTRNSPTSTS 02-15 14:00 → 2NB 02-15 14:00 → CMPTRNSPT 02-15 14:21
PROVIDERS: Physician Assistant; Physician Assistant Surgical; Surgery
PROC: 0DSB0ZZ Reposition Ileum, Open Approach (ICD-10-PCS; principal; 2018-02-10)
DX: Z43.2 Encounter for attention to ileostomy (principal); K63.2 Fistula of intestine; R50.82 Postprocedural fever
CPT/HCPCS: 2NBSP; 36415; 36592; 81001; 82436; 87040; 87086; 93005; 93010; C9290; J0131; J1200; J1644; J1885; J2405; J3490; J7042; J7120